=== PATIENT | female | born 1950 | race Caucasian/White ===

== ENCOUNTER → 2018-07-22 08:48 | Outpatient (CLI) | payer MEDICARE, SELFPAY ==
[2018-07-22 12:00] LABS: Thyroid Stimulating Hormone 0.05 uIU/mL (0.47-4.68)
== END ==
PROVIDERS: PCP Physician Assistant; Visit Provider Physician Assistant
DX: E03.9 Hypothyroidism, unspecified (principal)
CPT/HCPCS: 36415; 84439; 84443

== ENCOUNTER → 2018-08-22 09:24 | Outpatient (CLI) | payer MEDICARE, SELFPAY ==
[2018-08-22 11:17] LABS: Free T4, Direct Thyroxine 2.63 ng/dL (0.78-2.19)
[2018-08-22 11:31] LABS: Thyroid Stimulating Hormone 0.06 uIU/mL (0.47-4.68)
== END ==
PROVIDERS: PCP Physician Assistant; Visit Provider Physician Assistant
DX: E03.9 Hypothyroidism, unspecified (principal)
CPT/HCPCS: 36415; 84439; 84443

== ENCOUNTER → 2018-09-15 07:41 | Outpatient (CLI) | payer MEDICARE, SELFPAY ==
--- NOTE | 2018-09-15 | DI.MG.S_ITS ---
BILATERAL DIGITAL SCREENING MAMMOGRAM 3D/2D WITH CAD: 09/15/2018 CLINICAL: Routine screening. Comparison is made to exams dated: 09/07/2017 mammogram, 07/11/2016 mammogram, and 05/25/2015 mammogram - [facility]. There are scattered fibroglandular elements in both breasts. Current study was also evaluated with a Computer Aided Detection (CAD) system. No significant masses, calcifications, or other findings are seen in either breast. There has been no significant interval change. IMPRESSION: NEGATIVE There is no mammographic evidence of malignancy. A 1 year screening mammogram is recommended. This exam was interpreted at Station ID: [id number]. NOTE: For mammograms, a report in lay terms will be sent to the patient. Approximately 15% of breast malignancies will not be visualized mammographically. In the management of a palpable breast mass, a negative mammogram must not discourage biopsy of a clinically suspicious lesion. Electronically Signed By: Gerald velázquez/augusta:09/15/2018 09:11:22 letter sent: Normal Exam ACR BI-RADS Category 1: Negative 3341F
== END ==
PROVIDERS: PCP Physician Assistant; Visit Provider Physician Assistant
DX: Z12.31 Encounter for screening mammogram for malignant neoplasm of breast (principal)
CPT/HCPCS: 77063; 77067

== ENCOUNTER → 2018-10-24 08:32 | Outpatient (CLI) | payer MEDICARE, SELFPAY ==
[2018-10-24 10:03] LABS: Thyroid Stimulating Hormone 0.04 uIU/mL (0.47-4.68)
== END ==
PROVIDERS: PCP Physician Assistant; Visit Provider Internal Medicine Endocrinology, Diabetes & Metabolism
DX: E03.9 Hypothyroidism, unspecified (principal)
CPT/HCPCS: 36415; 84443

== ENCOUNTER → 2019-01-20 18:50 | Outpatient (ROUT) | payer MEDICARE, SELFPAY ==
[2019-01-20 19:05] LABS: Add Manual Diff / Slide Review NO; Basophils Absolute Auto 0 /uL (0-100); Basophils Percent Auto 0.6 % (0-2); Eosinophils Absolute Auto 0 /uL (0-450); Eosinophils Percent Auto 0.9 % (2-4); Hematocrit 38.9 % (36-46); Hemoglobin 13.1 g/dL (12.0-16.0); Lymphocytes Absolute Auto 1400 /uL (1100-4500); Lymphocytes Percent Auto 30.7 % (25-40); Mean Corpuscular HGB Conc 33.7 % (30-36); Mean Corpuscular Hemoglobin 28.6 PG (26-34); Monocytes Absolute Auto 400 /uL (0-900); Neutrophils Absolute Auto 2600 /uL (1500-7000); Neutrophils Percent Auto 59.8 % (50-75); Platelet Count 198 X10^3/uL (150-400); Red Blood Cell Count 4.58 X10^6/uL (4.0-5.2); Red Cell Distribution Width 13.2 % (11.6-14.8); White Blood Cell Count 4.4 X10^3/uL (4.5-11.0)
[2019-01-20 19:14] LABS: Alanine Aminotransferase 21 IU/L (9-52); Albumin 4.5 g/dL (3.5-5.0); Albumin Globulin Ratio 1.6 (1.0-2.8); Alkaline Phosphatase 76 U/L (38-126); Aspartate Aminotransferase 25 IU/L (14-36); BUN Creatinine Ratio 26.7 (6-22); Bilirubin Total 0.6 mg/dL (0.2-1.3); Blood Urea Nitrogen 16 mg/dL (7-17); Calcium 9.7 mg/dL (8.4-10.2); Carbon Dioxide 27 mmol/L (22-32); Chloride 100 mmol/L (98-107); Cholesterol 194 mg/dL (140-199); Estimated Glomerular Filt Rate > 60.0 mL/min (>60); Globulin 2.9 g/dL (1.7-4.1); Glucose 90 mg/dL (80-110); HDL Cholesterol 50 mg/dL (40-60); HEMOLYSIS 16 (0-50); LDL Cholesterol Calculated 117 mg/dL (<100); Potassium 3.8 mmol/L (3.4-5.1); Sodium 139 mmol/L (137-145); Total Protein 7.4 g/dL (6.3-8.2); Triglycerides 134 mg/dL (35-150)
[2019-01-20 19:47] LABS: TSH w/ Reflex to FT4 0.04 uIU/mL (0.47-4.68)
[2019-01-20 20:17] LABS: Free T4, Direct Thyroxine 2.32 ng/dL (0.78-2.19)
== END ==
PROVIDERS: PCP Physician Assistant; Visit Provider Physician Assistant
DX: E03.9 Hypothyroidism, unspecified (principal); E78.2 Mixed hyperlipidemia
CPT/HCPCS: 80053; 80061; 84439; 84443; 85025

== ENCOUNTER → 2019-01-26 10:12 | Outpatient (CLI) | payer MEDICARE, SELFPAY | PROVIDERS: PCP Physician Assistant; Visit Provider Physician Assistant | DX: M85.851 Other specified disorders of bone density and structure, right thigh (principal); Z78.0 Asymptomatic menopausal state; E07.9 Disorder of thyroid, unspecified; Z82.62 Family history of osteoporosis | CPT/HCPCS: 77080 ==

== ENCOUNTER → 2019-03-11 10:10 | Outpatient (CLI) | payer MEDICARE, SELFPAY ==
[2019-03-11 11:56] LABS: Free T4, Direct Thyroxine 1.66 ng/dL (0.78-2.19)
[2019-03-11 12:10] LABS: Thyroid Stimulating Hormone 0.32 uIU/mL (0.47-4.68)
== END ==
PROVIDERS: Family Provider Physician Assistant; PCP Physician Assistant; Visit Provider Internal Medicine Endocrinology, Diabetes & Metabolism
DX: E03.9 Hypothyroidism, unspecified (principal)
CPT/HCPCS: 36415; 84439; 84443

== ENCOUNTER → 2019-11-04 10:00 | Outpatient (CLI) | payer MEDICARE, SELFPAY ==
--- NOTE | 2019-11-04 | DI.MG.S_ITS ---
BILATERAL DIGITAL SCREENING MAMMOGRAM 3D/2D WITH CAD: 11/04/2019 CLINICAL: Routine screening. Comparison is made to exams dated: 09/15/2018 mammogram, 09/07/2017 mammogram, and 07/11/2016 mammogram - [facility]. There are scattered fibroglandular elements in both breasts. Current study was also evaluated with a Computer Aided Detection (CAD) system. There is a 0.7 cm oval equal density focal asymmetry in the left breast at 7 o'clock middle depth. This is more prominent and increased in size. No other significant masses, calcifications, or other findings are seen in either breast. IMPRESSION: INCOMPLETE: NEEDS ADDITIONAL IMAGING EVALUATION The 0.7 cm oval equal density focal asymmetry in the left breast resembles a cyst or a lymph node and is indeterminate. Additional views with possible ultrasound are recommended. This exam was interpreted at Station ID: [id number]. NOTE: For mammograms, a report in lay terms will be sent to the patient. Approximately 15% of breast malignancies will not be visualized mammographically. In the management of a palpable breast mass, a negative mammogram must not discourage biopsy of a clinically suspicious lesion. Electronically Signed By: Gerald velázquez/augusta:11/05/2019 07:17:59 letter sent: Additional Imaging Needed ACR BI-RADS Category 0: Incomplete 3340F
[2019-11-04 10:29] LABS: Add Manual Diff / Slide Review NO; Basophils Absolute Auto 0 /uL (0-100); Basophils Percent Auto 0.5 % (0-2); Eosinophils Absolute Auto 0 /uL (0-450); Eosinophils Percent Auto 0.9 % (2-4); Hematocrit 36.8 % (36-46); Hemoglobin 12.5 g/dL (12.0-16.0); Lymphocytes Absolute Auto 1300 /uL (1100-4500); Lymphocytes Percent Auto 35.5 % (25-40); Mean Corpuscular Hemoglobin 28.8 PG (26-34); Mean Corpuscular Volume 84.7 fL (80-100); Monocytes Absolute Auto 400 /uL (0-900); Neutrophils Absolute Auto 1900 /uL (1500-7000); Neutrophils Percent Auto 53.1 % (50-75); Platelet Count 176 X10^3/uL (150-400); Red Blood Cell Count 4.34 X10^6/uL (4.0-5.2); Red Cell Distribution Width 13.4 % (11.6-14.8); White Blood Cell Count 3.6 X10^3/uL (4.5-11.0)
[2019-11-04 10:45] LABS: Alanine Aminotransferase 14 IU/L (<35); Albumin 4.5 g/dL (3.5-5.0); Albumin Globulin Ratio 1.7 (1.0-2.8); Alkaline Phosphatase 60 U/L (38-126); Aspartate Aminotransferase 22 IU/L (14-36); BUN Creatinine Ratio 27.4 (6-22); Bilirubin Total 0.5 mg/dL (0.2-1.3); Blood Urea Nitrogen 17 mg/dL (7-17); Calcium 9.9 mg/dL (8.4-10.2); Carbon Dioxide 29 mmol/L (22-32); Chloride 102 mmol/L (98-107); Cholesterol 230 mg/dL (140-199); Estimated Glomerular Filt Rate > 60.0 mL/min (>60); Globulin 2.6 g/dL (1.7-4.1); Glucose 102 mg/dL (80-110); HDL Cholesterol 53 mg/dL (40-60); HEMOLYSIS < 15 (0-50); LDL Cholesterol Calculated 158 mg/dL (<100); Potassium 4.1 mmol/L (3.4-5.1); Sodium 137 mmol/L (137-145); Total Protein 7.1 g/dL (6.3-8.2); Triglycerides 95 mg/dL (35-150)
[2019-11-04 11:02] LABS: Vitamin D 25 Hydroxy (D3) 39.6 ng/mL (30.0-100.0)
[2019-11-04 11:15] LABS: TSH w/ Reflex to FT4 3.73 uIU/mL (0.47-4.68)
--- NOTE | 2019-11-04 16:37 | DI.MRI.S_ITS ---
PROCEDURE: MR KNEE LT WO CON INDICATIONS: PAIN LEFT KNEE TECHNIQUE: Noncontrast sagittal PD fast spin echo and T2 fast spin echo with fat saturation, sagittal 3-D FLASH with fat saturation; coronal T1 spin echo and PD fast spin echo with fat saturation, and axial PD fast spin echo with fat saturation through the knee. COMPARISON: None. FINDINGS: Image quality: Excellent. Menisci: Complex tear involving body and posterior horn of medial meniscus is seen extending to both superior and inferior articulating surface. There is no evidence of focal lateral meniscal tear. The meniscal root ligaments appear intact. Cruciate ligaments: Myxoid degenerative changes within the anterior cruciate ligament is seen. No evidence of ACL rupture. PCL is intact. Medial structures: There is low-grade MCL sprain/partial thickness tear. The posterior oblique ligament, semimembranosus tendon insertions, oblique popliteal ligament, and meniscocapsular junction appear intact. Visualized portions of the pes anserinus tendons appear normal. No abnormal bursal fluid. Lateral structures: The lateral collateral ligament, long and short heads of the biceps femoris tendon appear intact. The popliteus tendon appears normal; the popliteofibular ligament appears intact. The posterosuperior and anteroinferior popliteomeniscal fascicles appear intact. The arcuate and fabellofibular ligaments appear intact, on either side of the lateral inferior geniculate artery. Iliotibial band appears normal. Anterior structures: The quadriceps and patellar tendons appear intact. Patellar alignment is normal. No femoral trochlear dysplasia or ventral trochlear prominence. No edema in the infrapatellar fat pad. Bones and cartilage: No bone marrow contusions or fractures. Moderate tricompartmental osteoarthritis and chondromalacia is seen most prominent in the medial femoral tibial compartment. Joint space: There is small to moderate amount of joint effusion, no gross intra-articular loose body.. No Bashir's cyst. Normal appearing synovial plicae are incidentally noted. IMPRESSION: 1. Moderate tricompartmental osteoarthritis and chondromalacia most prominent in the medial femoral tibial compartment. Small to moderate joint effusion. 2. Complex tear involving body and posterior horn of medial meniscus extending to both superior and inferior articular surfaces. Peripheral displacement of medial meniscus bowing medial collateral ligament. No focal lateral meniscal tear. 3. Myxoid degenerative changes within ACL. No ACL rupture. PCL is intact. 4. Low-grade MCL sprain. Dictated by: Valerio Uribe M.D. on 11/05/2019 at 8:49 Approved by: Valerio Uribe M.D. on 11/05/2019 at 8:54
== END ==
PROVIDERS: Family Provider Physician Assistant; PCP Physician Assistant; Referring Provider Physician Assistant; Visit Provider Physician Assistant
DX: Z12.31 Encounter for screening mammogram for malignant neoplasm of breast (principal); M25.562 Pain in left knee; S83.232A Complex tear of medial meniscus, current injury, left knee, initial encounter; S83.412A Sprain of medial collateral ligament of left knee, initial encounter; M17.12 Unilateral primary osteoarthritis, left knee; M94.262 Chondromalacia, left knee; M25.462 Effusion, left knee; I10 Essential (primary) hypertension; E55.9 Vitamin D deficiency, unspecified; E03.9 Hypothyroidism, unspecified; E78.2 Mixed hyperlipidemia
CPT/HCPCS: 36415; 73721; 77063; 77067; 80053; 80061; 82306; 84443; 85025

== ENCOUNTER → 2019-11-23 09:14 | Outpatient (CLI) | payer MEDICARE, SELFPAY ==
--- NOTE | 2019-11-23 | DI.MG.S_ITS ---
UNILATERAL LEFT DIGITAL DIAGNOSTIC MAMMOGRAM 3D/2D WITH ADDITIONAL VIEWS: 11/23/2019 CLINICAL: Additional evaluation requested from prior study. Comparison is made to exams dated: 11/04/2019 mammogram, 09/15/2018 mammogram, 09/07/2017 mammogram, 07/11/2016 mammogram, and 05/25/2015 mammogram - [facility]. There are scattered fibroglandular elements in left breast. There is a 0.7 cm oval equal density focal asymmetry with a circumscribed margin in the left breast at 7 o'clock middle depth. No other significant masses or calcifications are seen in the breast. IMPRESSION: INCOMPLETE: NEEDS ADDITIONAL IMAGING EVALUATION The 0.7 cm oval equal density focal asymmetry in the left breast resembles a cyst or a lymph node and is indeterminate. A targeted ultrasound is recommended and will immediately follow. This exam was interpreted at Station ID: [id number]. NOTE: For mammograms, a report in lay terms will be sent to the patient. Approximately 15% of breast malignancies will not be visualized mammographically. In the management of a palpable breast mass, a negative mammogram must not discourage biopsy of a clinically suspicious lesion. Electronically Signed By: Markos Fallon M.D. slc/:11/23/2019 09:40:14 ACR BI-RADS Category 0: Incomplete 3340F
--- NOTE | 2019-11-23 | DI.US.S_ITS ---
LIMITED ULTRASOUND OF LEFT BREAST: 11/23/2019 CLINICAL: Patient returns today to evaluate a focal asymmetry in the left breast. Comparison is made to exams dated: 11/23/2019 mammogram, 11/04/2019 mammogram, 09/15/2018 mammogram, 09/07/2017 mammogram, 07/11/2016 mammogram, and 05/25/2015 mammogram - [facility]. Color flow and real-time ultrasound of the left breast 7 o'clock region were performed. Nance scale images of the real-time examination were reviewed. There is a benign 0.5 cm x 0.3 cm x 0.3 cm oval cyst in the left breast at 7 o'clock anterior depth 5 cm from the nipple. This oval cyst is anechoic with posterior acoustic enhancement. This correlates with mammography findings. Color flow imaging demonstrates that there is no vascularity present. IMPRESSION: BENIGN There is no sonographic evidence of malignancy. The 0.5 cm oval cyst in the left breast corresponding to the mammographic finding is consistent with a simple cyst and is benign. A 1 year screening mammogram is recommended. Exam findings conveyed to the patient. This exam was interpreted at Station ID: [id number]. Electronically Signed By: Markos Fallon M.D. slc/:11/23/2019 10:56:52 letter sent: Normal Exam Ultrasound BI-RADS: 2 Benign
== END ==
PROVIDERS: Family Provider Physician Assistant; PCP Physician Assistant; Referring Provider Physician Assistant; Visit Provider Physician Assistant
DX: R92.8 Other abnormal and inconclusive findings on diagnostic imaging of breast (principal); N60.02 Solitary cyst of left breast
CPT/HCPCS: 76642; 77065; G0279

== ENCOUNTER → 2020-02-29 18:38 | Outpatient (ROUT) | payer MEDICARE, SELFPAY ==
[2020-02-29 20:20] LABS: BUN Creatinine Ratio 20.3 (6-22); Blood Urea Nitrogen 13 mg/dL (7-17); Calcium 9.4 mg/dL (8.4-10.2); Carbon Dioxide 29 mmol/L (22-32); Chloride 102 mmol/L (98-107); Cholesterol 224 mg/dL (140-199); Estimated Glomerular Filt Rate > 60.0 mL/min (>60); Glucose 99 mg/dL (80-110); HDL Cholesterol 53 mg/dL (40-60); HEMOLYSIS < 15 (0-50); LDL Cholesterol Calculated 141 mg/dL (<100); Potassium 3.9 mmol/L (3.4-5.1); Sodium 138 mmol/L (137-145); Triglycerides 150 mg/dL (35-150)
[2020-02-29 20:42] LABS: TSH w/ Reflex to FT4 3.62 uIU/mL (0.47-4.68)
== END ==
PROVIDERS: Family Provider Physician Assistant; PCP Physician Assistant; Visit Provider Physician Assistant
DX: E78.2 Mixed hyperlipidemia (principal); E03.9 Hypothyroidism, unspecified
CPT/HCPCS: 80048; 80061; 84443

== ENCOUNTER → 2020-07-07 08:05 | Outpatient (CLI) | payer MEDICARE, SELFPAY ==
[2020-07-07] MEDS: COVID-19 VACC, Ad26(JANSSEN)/PF 0.5 ML IM (08:17)
== END ==
PROVIDERS: Family Provider Physician Assistant; PCP Physician Assistant; Visit Provider Internal Medicine
DX: Z23 Encounter for immunization (principal)
CPT/HCPCS: 0031A; 91303

== ENCOUNTER → 2020-08-04 14:45 | Outpatient (ROUT) | payer MEDICARE, SELFPAY ==
[2020-08-04 15:06] LABS: Add Manual Diff / Slide Review NO; Basophils Absolute Auto 0 /uL (0-100); Basophils Percent Auto 0.7 % (0-2); Eosinophils Absolute Auto 0 /uL (0-450); Eosinophils Percent Auto 0.5 % (2-4); Hematocrit 40.1 % (36-46); Hemoglobin 13.6 g/dL (12.0-16.0); Lymphocytes Absolute Auto 1000 /uL (1100-4500); Lymphocytes Percent Auto 18.3 % (25-40); Mean Corpuscular HGB Conc 33.9 % (30-36); Mean Corpuscular Hemoglobin 29.2 PG (26-34); Mean Corpuscular Volume 86.1 fL (80-100); Monocytes Absolute Auto 400 /uL (0-900); Monocytes Percent Auto 7.3 % (3-14); Neutrophils Absolute Auto 3800 /uL (1500-7000); Neutrophils Percent Auto 73.2 % (50-75); Platelet Count 201 X10^3/uL (150-400); Red Blood Cell Count 4.66 X10^6/uL (4.0-5.2); Red Cell Distribution Width 13.4 % (11.6-14.8); White Blood Cell Count 5.2 X10^3/uL (4.5-11.0)
[2020-08-04 15:12] LABS: Alanine Aminotransferase 18 IU/L (<35); Albumin 4.6 g/dL (3.5-5.0); Albumin Globulin Ratio 1.4 (1.0-2.8); Alkaline Phosphatase 76 U/L (38-126); Aspartate Aminotransferase 28 IU/L (14-36); BUN Creatinine Ratio 22.5 (6-22); Bilirubin Total 0.4 mg/dL (0.2-1.3); Blood Urea Nitrogen 16 mg/dL (7-17); Carbon Dioxide 29 mmol/L (22-32); Chloride 100 mmol/L (98-107); Estimated Glomerular Filt Rate > 60.0 mL/min (>60); Globulin 3.3 g/dL (1.7-4.1); Glucose 117 mg/dL (80-110); HEMOLYSIS < 15 (0-50); Magnesium 1.9 mg/dL (1.6-2.3); Sodium 139 mmol/L (137-145); Total Protein 7.9 g/dL (6.3-8.2)
[2020-08-04 15:38] LABS: TSH w/ Reflex to FT4 6.56 uIU/mL (0.47-4.68)
[2020-08-04 17:00] LABS: Free T4, Direct Thyroxine 1.81 ng/dL (0.78-2.19)
== END ==
PROVIDERS: Family Provider Physician Assistant; PCP Physician Assistant; Visit Provider Physician Assistant
DX: R00.2 Palpitations (principal)
CPT/HCPCS: 80053; 83735; 84439; 84443; 85025

== ENCOUNTER → 2020-08-10 15:14 | Outpatient (CLI) | payer MEDICARE, SELFPAY ==
--- NOTE | 2020-08-31 08:41 | PM.CARDMON.1 ---
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 No etiology for patient's sense of palpitations identified on this study. No significant dysrhythmias whatsoever.
== END ==
PROVIDERS: Family Provider Physician Assistant; PCP Physician Assistant; Referring Provider Physician Assistant; Visit Provider Physician Assistant
DX: R00.2 Palpitations (principal)
CPT/HCPCS: 93242; 93244

== ENCOUNTER → 2020-11-10 08:27 | Outpatient (CLI) | payer MEDICARE, SELFPAY ==
--- NOTE | 2020-11-10 | DI.MG.S_ITS ---
BILATERAL DIGITAL SCREENING MAMMOGRAM 3D/2D WITH CAD: 11/10/2020 CLINICAL: Routine screening. Comparison is made to exams dated: 11/23/2019 mammogram, 11/04/2019 mammogram, and 09/15/2018 mammogram - [facility]. There are scattered fibroglandular elements in both breasts. Current study was also evaluated with a Computer Aided Detection (CAD) system. No significant masses, calcifications, or other findings are seen in either breast. There has been no significant interval change. IMPRESSION: NEGATIVE There is no mammographic evidence of malignancy. A 1 year screening mammogram is recommended. This exam was interpreted at Station ID: [id number]. NOTE: For mammograms, a report in lay terms will be sent to the patient. Approximately 15% of breast malignancies will not be visualized mammographically. In the management of a palpable breast mass, a negative mammogram must not discourage biopsy of a clinically suspicious lesion. Electronically Signed By: Flex Bond M.D., jr/augusta:11/10/2020 09:51:02 letter sent: Normal Exam ACR BI-RADS Category 1: Negative 3341F
== END ==
PROVIDERS: Family Provider Physician Assistant; PCP Physician Assistant; Referring Provider Physician Assistant; Visit Provider Physician Assistant
DX: Z12.31 Encounter for screening mammogram for malignant neoplasm of breast (principal)
CPT/HCPCS: 77063; 77067

== ENCOUNTER → 2021-02-15 13:13 | Outpatient (CLI) | payer MEDICARE, SELFPAY | PROVIDERS: Family Provider Physician Assistant; PCP Physician Assistant; Referring Provider Nurse Practitioner; Visit Provider Nurse Practitioner | DX: N34.3 Urethral syndrome, unspecified (principal) | CPT/HCPCS: 87077; 87086 ==

== ENCOUNTER → 2021-11-21 13:07 | Outpatient (CLI) | payer MEDICARE, SELFPAY ==
--- NOTE | 2021-11-21 | DI.MG.S_ITS ---
BILATERAL DIGITAL SCREENING MAMMOGRAM 3D/2D WITH CAD: 11/21/2021 CLINICAL: Routine screening. Comparison is made to exams dated: 11/10/2020 mammogram, 11/04/2019 mammogram, 09/15/2018 mammogram, and 09/07/2017 mammogram - [facility]. There are scattered fibroglandular elements in both breasts. Current study was also evaluated with a Computer Aided Detection (CAD) system. No significant masses, calcifications, or other findings are seen in either breast. There has been no significant interval change. IMPRESSION: NEGATIVE There is no mammographic evidence of malignancy. A 1 year screening mammogram is recommended. Based on the Tyrer Cuzick model (a risk assessment model) the patient's lifetime risk is 6.1% and her 10 year risk is 3.8%. According to the ACR, ACS, and NCCN guidelines, an annual breast MRI exam along with mammogram is recommended if the patient's lifetime risk is 20% or greater. This exam was interpreted at Station ID: [id number]. NOTE: For mammograms, a report in lay terms will be sent to the patient. Approximately 15% of breast malignancies will not be visualized mammographically. In the management of a palpable breast mass, a negative mammogram must not discourage biopsy of a clinically suspicious lesion. Electronically Signed By: Markos couch/augusta:11/21/2021 17:43:34 letter sent: Normal Exam ACR BI-RADS Category 1: Negative 3341F
== END ==
PROVIDERS: Family Provider Physician Assistant; PCP Physician Assistant; Referring Provider Physician Assistant; Visit Provider Physician Assistant
DX: Z12.31 Encounter for screening mammogram for malignant neoplasm of breast (principal)
CPT/HCPCS: 77063; 77067

== ENCOUNTER 2022-03-07 15:29 | Emergency (ER) | payer MEDICARE, SELFPAY ==
[2022-03-07] VITALS (8 sets, daily range): BP systolic 170–193; BP diastolic 73–97; PULSE 77–87; RESP 15–24; TEMP 36.6; O2SAT 98–100
--- NOTE | 2022-03-07 15:36 | DI.RAD.S_ITS ---
PROCEDURE: XR CHEST 1V INDICATIONS: chest pain TECHNIQUE: One view of the chest was acquired. COMPARISON: None. FINDINGS: Surgical changes and devices: None. Lungs and pleura: Lungs are clear. No pleural effusions or pneumothorax. Mediastinum: Mediastinal contours appear normal. Heart size is normal. Bones and chest wall: No suspicious bony lesions. Overlying soft tissues appear unremarkable. IMPRESSION: No acute cardiopulmonary pathology. Dictated by: Valerio Uribe M.D. on 03/07/2022 at 16:16 Approved by: Valerio Uribe M.D. on 03/07/2022 at 16:16
[2022-03-07 16:19] LABS: Add Manual Diff / Slide Review NO; Basophils Absolute Auto 0 /uL (0-100); Basophils Percent Auto 0.3 % (0-2); Eosinophils Absolute Auto 0 /uL (0-450); Eosinophils Percent Auto 0.6 % (2-4); Hematocrit 34.6 % (36-46); Hemoglobin 11.9 g/dL (12.0-16.0); Lymphocytes Absolute Auto 1600 /uL (1100-4500); Mean Corpuscular HGB Conc 34.5 % (30-36); Mean Corpuscular Hemoglobin 29.3 PG (26-34); Mean Corpuscular Volume 84.9 fL (80-100); Monocytes Absolute Auto 500 /uL (0-900); Neutrophils Absolute Auto 4500 /uL (1500-7000); Neutrophils Percent Auto 68.1 % (50-75); Platelet Count 251 X10^3/uL (150-400); Red Blood Cell Count 4.07 X10^6/uL (4.0-5.2); White Blood Cell Count 6.5 X10^3/uL (4.5-11.0)
[2022-03-07 16:35] LABS: Alanine Aminotransferase 16 IU/L (<35); Albumin 4.5 g/dL (3.5-5.0); Albumin Globulin Ratio 1.3 (1.0-2.8); Alkaline Phosphatase 104 U/L (38-126); Aspartate Aminotransferase 25 IU/L (14-36); BUN Creatinine Ratio 22.6 (6-22); Bilirubin Total 0.5 mg/dL (0.2-1.3); Blood Urea Nitrogen 19 mg/dL (7-17); Calcium 9.5 mg/dL (8.4-10.2); Carbon Dioxide 26 mmol/L (22-32); Chloride 100 mmol/L (98-107); Creatine Kinase 23 U/L (30-135); Estimated Glomerular Filt Rate > 60 mL/min (>60); Globulin 3.4 g/dL (1.7-4.1); Glucose 113 mg/dL (80-110); HEMOLYSIS < 15 (0-50); Lipase 15 U/L (23-300); Magnesium 1.8 mg/dL (1.6-2.3); Potassium 3.4 mmol/L (3.4-5.1); Sodium 137 mmol/L (137-145); Total Protein 7.9 g/dL (6.3-8.2)
--- NOTE | 2022-03-07 16:42 | PC.NURSE ---
pt asked to have post op wound checked due to redness and warmth that started a few days ago. undressed. would is covered with steri strips. slight redness at distal end of incision and warmth. pt has post op appt tomorrow to have this checked.
[2022-03-07 16:46] LABS: Troponin I < 0.012 ng/mL (0.01-0.034)
--- NOTE | 2022-03-07 16:47 | ED_ITS ---
HPI - Arrhythmia/Palpitations General Chief Complaint: Arrhythmia/Palpitations Stated Complaint: Heart fluttering Time Seen by Provider: 03/07/22 15:51 Source: patient Mode of arrival: Ambulatory History of Present Illness HPI narrative: 71-year-old female who was instructed to come to the emergency department by her primary provider for elevated blood pressure and also occasional episodes of palpitations. She states that the palpitations never caused her to have chest pain or shortness of breath or lightheadedness. When they come on the last for seconds and then resolve. She did recently have left knee surgery. She currently is asymptomatic. Related Data Home Medications Medication Instructions Recorded Confirmed [vitamin E] ##0 12/12/16 02/15/21 [vitamin b12] ##0 12/12/16 02/15/21 Allergies Allergy/AdvReac Type Severity Reaction Status Date / Time codeine [CODEINE] Allergy Unknown Unverified 02/15/21 13:34 hydrocodone AdvReac Intermediate Vomiting Verified 03/07/22 16:30 Review of Systems Constitutional Constitutional: Reports system reviewed and no additional complaints, except as documented Cardiovascular Cardiovascular: Reports system reviewed and no additional complaints, except as documented Respiratory Respiratory: Reports system reviewed and no additional complaints, except as documented Musculoskeletal Musculoskeletal: Reports system reviewed and no additional complaints, except as documented Integumentary/Breasts Skin/Breast: Reports system reviewed and no additional complaints, except as documented Neurologic Neurologic: Reports system reviewed and no additional complaints, except as documented Patient History Medical History UTI (urinary tract infection) Social History Smoking Status: Never smoker Smoking Status: Never smoker Exam Initial Vital Signs Initial Vital Signs: Vital Signs Temperature 97.9 F 03/07/22 15:32 Pulse Rate 87 03/07/22 15:32 Respiratory Rate 18 03/07/22 15:32 Blood Pressure 173/74 H 03/07/22 15:32 Pulse Oximetry 98 03/07/22 15:32 Oxygen Delivery Method 03/07/22 15:32 Const General: cooperative, healthy appearing, comfortable, well developed and No ill appearing HENMT Head: normal to inspection and normocephalic Resp Effort & Inspection: normal respiratory effort Auscultation: clear to auscultation bilaterally Cardio Rate: regular rate Rhythm: regular rhythm GI Inspection: normal to inspection Skin Other: Well-healing wound to left anterior knee consistent with her stated surgical history. No signs of infection. Extrem General: normal to inspection Course Orders Ordered: ED Orders 03/07/22 15:36 XR chest 1V Stat 03/07/22 15:46 EKG-12 Lead Stat 03/07/22 16:03 Complete Blood Count AUTO DIFF Stat Comprehensive Metabolic Panel Stat Lipase Stat Magnesium Stat Troponin & CK Cardiac Panel Stat Vital Signs Vital signs: Vital Signs - 8 hr 03/07/22 15:32 03/07/22 15:56 03/07/22 15:57 Temperature 97.9 F Pulse Rate 87 77 77 Respiratory Rate 18 23 24 Blood Pressure 173/74 H Pulse Oximetry 98 100 99 Oxygen Delivery Method Room Air 03/07/22 15:57 03/07/22 16:00 03/07/22 16:30 Temperature Pulse Rate 78 79 Respiratory Rate 20 18 Blood Pressure 186/85 H Pulse Oximetry 99 98 Oxygen Delivery Method 03/07/22 16:41 03/07/22 16:41 03/07/22 17:00 Temperature Pulse Rate 82 Respiratory Rate 24 Blood Pressure 193/97 H 170/73 H Pulse Oximetry 99 Oxygen Delivery Method 03/07/22 17:00 03/07/22 17:30 03/07/22 17:30 Temperature Pulse Rate 78 78 Respiratory Rate 17 15 Blood Pressure 177/75 H Pulse Oximetry 98 99 Oxygen Delivery Method MDM - Arrhythmia/Palpitations Lab Data Attestation: I reviewed the patient's lab results. Result diagrams: 03/07/22 16:03 03/07/22 16:03 Labs: Lab Results 03/07/22 03/07/22 Range/Units 16:03 16:03 WBC 6.5 (4.5-11.0) X10^3/uL RBC 4.07 (4.0-5.2) X10^6/uL Hgb 11.9 L (12.0-16.0) g/dL Hct 34.6 L (36-46) % MCV 84.9 (80-100) fL MCH 29.3 (26-34) PG MCHC 34.5 (30-36) % RDW 13.0 (11.6-14.8) % Plt Count 251 (150-400) X10^3/uL Neut % (Auto) 68.1 (50-75) % Lymph % (Auto) 24.0 L (25-40) % Hendricks % (Auto) 7.0 (3-14) % Eos % (Auto) 0.6 L (2-4) % Baso % (Auto) 0.3 (0-2) % Neut # (Auto) 4500 (0064-9839) /uL Lymph # (Auto) 1600 (2973-1614) /uL Hendricks # (Auto) 500 (0-900) /uL Eos # (Auto) 0 (0-450) /uL Baso # (Auto) 0 (0-100) /uL Sodium 137 (137-145) mmol/L Potassium 3.4 (3.4-5.1) mmol/L Chloride 100 (98-107) mmol/L Carbon Dioxide 26 (22-32) mmol/L BUN 19 H (7-17) mg/dL Creatinine 0.84 (0.52-1.04) mg/dL Estimated GFR > 60 (>60) mL/min BUN/Creatinine Ratio 22.6 H (6-22) Glucose 113 H (80-110) mg/dL Calcium 9.5 (8.4-10.2) mg/dL Magnesium 1.8 (1.6-2.3) mg/dL Total Bilirubin 0.5 (0.2-1.3) mg/dL AST 25 (14-36) IU/L ALT 16 (<35) IU/L Alkaline Phosphatase 104 (38-126) U/L Total Creatine Kinase 23 L (30-135) U/L CK-MB (CK-2) TNP CK-MB (CK-2) Rel Index TNP Troponin I < 0.012 (0.01-0.034) ng/mL Total Protein 7.9 (6.3-8.2) g/dL Albumin 4.5 (3.5-5.0) g/dL Globulin 3.4 (1.7-4.1) g/dL Albumin/Globulin Ratio 1.3 (1.0-2.8) Lipase 15 L (23-300) U/L Imaging Data Chest x-ray: Radiologist's Impresson: [address] [id number] XRay Report Signed Patient: Aisha Contreras MR#: [id number] : 1950 Acct:[id number] Age/Sex: 71 / F Date of Service: 03/07/22 Loc: ED Accession Number: [id number] ?? Procedure: XR chest 1V Ordering Provider: Yon Avery D.O. PROCEDURE:? XR CHEST 1V ? INDICATIONS:? chest pain ? TECHNIQUE:? One view of the chest was acquired.? ? COMPARISON:? None. ? FINDINGS:? ? Surgical changes and devices:? None.? ? Lungs and pleura:? Lungs are clear.? No pleural effusions or pneumothorax.? ? Mediastinum:? Mediastinal contours appear normal.? Heart size is normal.? ? Bones and chest wall:? No suspicious bony lesions.? Overlying soft tissues appear unremarkable.? ? IMPRESSION:? No acute cardiopulmonary pathology. ? ? Dictated by: Valerio Uribe M.D. on 03/07/2022 at 16:16 ? ? Approved by: Valerio Uribe M.D. on 03/07/2022 at 16:16? ECG Data Attestation: I personally reviewed and interpreted this ECG as follows: Interpretation: Sinus rhythm Ventricular rate is 74 Normal axis Normal QRS Normal QTC No ST T wave changes MDM Narrative Medical decision making narrative: Patient is asymptomatic. EKG is unremarkable. Labs unremarkable. Her left knee wound looks appropriate and has no signs of infection. Did discuss with her palpitations. Discussed that she should contact her primary doctor for follow-up to discuss the indications for a Holter monitor. She was given return precautions. She expressed understanding agreement. Discharge Plan Departure Patient Disposition: Home Clinical Impression: Palpitations Instructions: Arrhythmias Activity Restrictions/Additional Instructions: Continue to take all of your medications as directed and follow all of the postoperative instructions given to by the orthopedic surgeon. Contact your primary doctor to discuss the indications for a Holter monitor. Return to the emergency department for any new or worsening symptoms. Prescriptions: No Action [vitamin E] Qty: 0 [vitamin b12] Qty: 0 Referrals: Luz Elena Quan PA-C [Primary Care Provider] - Visit Report Forms: Patient Portal/API
== END 2022-03-07 17:55 | disposition home or self-care (01) ==
PROVIDERS: Emergency Provider Emergency Medicine; Family Provider Physician Assistant; PCP Physician Assistant
DX: R00.2 Palpitations (principal); R07.9 Chest pain, unspecified
CPT/HCPCS: 36415; 71045; 80053; 82550; 83690; 83735; 84484; 85025; 93005; 93010; 99284

== ENCOUNTER → 2022-11-26 15:17 | Outpatient (CLI) | payer MEDICARE, SELFPAY ==
--- NOTE | 2022-11-26 15:18 | DI.MG.S_ITS ---
BILATERAL DIGITAL SCREENING MAMMOGRAM 3D/2D WITH CAD: 11/26/2022 CLINICAL: Routine screening. Family history of breast cancer. Comparison is made to exams dated: 11/21/2021 mammogram, 11/10/2020 mammogram, 11/23/2019 mammogram, and 11/04/2019 mammogram - [facility]. There are scattered areas of fibroglandular density in both breasts (category b / 25%-50% glandular tissue). Current study was also evaluated with a Computer Aided Detection (CAD) system. There is a stable benign focal asymmetry in the left breast. No significant masses, calcifications, or other findings are seen in either breast. There has been no significant interval change. IMPRESSION: BENIGN There is no mammographic evidence of malignancy. A 1 year screening mammogram is recommended. Based on the Tyrer Cuzick model (a risk assessment model) the patient's lifetime risk is 5.7% and her 10 year risk is 3.9%. According to the ACR, ACS, and NCCN guidelines, an annual breast MRI exam along with mammogram is recommended if the patient's lifetime risk is 20% or greater. This exam was interpreted at Station ID: [id number]. NOTE: For mammograms, a report in lay terms will be sent to the patient. Approximately 15% of breast malignancies will not be visualized mammographically. In the management of a palpable breast mass, a negative mammogram must not discourage biopsy of a clinically suspicious lesion. Electronically Signed By: Jose nolan/augusta:11/27/2022 08:47:42 letter sent: Normal Exam ACR BI-RADS Category 2: Benign Finding(s) 3342F
== END ==
PROVIDERS: Family Provider Physician Assistant; PCP Physician Assistant; Referring Provider Physician Assistant; Visit Provider Physician Assistant
DX: Z12.31 Encounter for screening mammogram for malignant neoplasm of breast (principal); Z80.3 Family history of malignant neoplasm of breast
CPT/HCPCS: 77063; 77067

== ENCOUNTER → 2023-07-05 | Outpatient (CLI) | payer MEDICARE, SELFPAY ==
--- NOTE | 2023-07-05 15:12 | DI.RAD.S_ITS ---
PROCEDURE: XR DEXA AXIAL SKELETON INDICATIONS: screening for osteoporosis COMPARISON: [facility], CR, XR DEXA AXIAL SKELETON, 01/26/2019, 10:49. FINDINGS: This blank DEXA report has been sent in error by the PACS system. The correct and complete report will be forthcoming in 1-2 days. Thank you for your patience and understanding. Dictated by: Shelton Roberts M.D. on 07/05/2023 at 16:51 Approved by: Shelton Roberts M.D. on 07/05/2023 at 16:51
--- NOTE | 2023-07-05 15:13 | DI.RAD.S_ITS ---
PROCEDURE: XR KNEE LT 3V INDICATIONS: LT KNEE PAIN TECHNIQUE: 3 views of the knee were acquired. COMPARISON: [facility], CR, XR KNEE ARTHRITIC SERIES LT, 02/05/2023, 14:48. [facility], CR, KNEE 3V LEFT, 12/12/2016, 16:08. FINDINGS: Bones: Left knee medial compartment hemiarthroplasty is stable. No periprosthetic lucency to suggest loosening or infection. No fractures or dislocations. No suspicious bony lesions. Soft tissues: Small joint effusion. No suspicious soft tissue calcifications. IMPRESSION: Stable left knee medial compartment hemiarthroplasty. Dictated by: Markos Fallon M.D. on 07/05/2023 at 17:03 Approved by: Markos Fallon M.D. on 07/05/2023 at 17:06
--- NOTE | 2023-07-05 15:44 | DI.DEXA.S_ITS ---
Bone Density Report Name: JAKY GARZA Age: 72 Sex: Female Ethnicity: White Date of : 1950 Indication: osteopenia; Referring Provider: ANAND DAVIS Study: Bone densitometry was performed. Exam Date: July 05, 2023 Accession number: [id number] Bone Density: Region BMD T-score Z-score Classification AP Spine(L1, L2, L3) 1.053 0.3 2.5 Normal Femoral Neck (Left) 0.639 -1.9 0.0 Osteopenia Total Hip (Left) 0.805 -1.1 0.5 Osteopenia Femoral Neck (Right) 0.617 -2.1 -0.2 Osteopenia Total Hip (Right) 0.819 -1.0 0.6 Normal Total Hip Mean 0.812 -1.1 0.6 Osteopenia World Health Organization criteria for BMD impression classify patients as: Normal (T-score at or above -1.0), Osteopenia (T-score between -1.0 and -2.5), or Osteoporosis (T-score at or below -2.5). 10-year Fracture Risk(1): Major Osteoporotic Fracture 12% Hip Fracture 2.6% Reported Risk Factors: [place] (), Neck BMD=0.617, BMI=26.3 (1) FRAX(R) Version 3.08. Fracture probability calculated for an untreated patient. Fracture probability may be lower if the patient has received treatment. Previous Exams: -- Region Exam Age BMD T-score BMD Change BMD Change Date g/cm2 vs Baseline vs Previous -- AP Spine (L1-L3) 07/05/2023 72 1.053 0.3 -0.007 (-0.6%)# -0.007 (-0.6%)# 01/26/2019 68 1.060 0.4 Total Hip(Left) 07/05/2023 72 0.805 -1.1 0.032 (4.1%)# 0.032 (4.1%)# 01/26/2019 68 0.773 -1.4 Total Hip(Right) 07/05/2023 72 0.819 -1.0 0.032 (4.1%)# 0.032 (4.1%)# 01/26/2019 68 0.787 -1.3 -- *Denotes significance at 95% confidence level, LSC for AP Spine = 0.022 g/cm2, LSC for Total Hip = 0.027 g/cm2 # Denotes dissimilar scan types or analysis methods Impression: The patient has low bone mass, based on the Right Femoral Neck T-score. The patient has an estimated ten-year risk of hip fracture of 2.6% and an estimated ten-year risk of major fracture of 12%, based on the WHO FRAX algorithm. No significant bone loss was observed. Discussion: BONE DENSITY IS LOW AT ONE OR MORE SKELETAL SITES. This patient's lowest T-score is low at one or more skeletal sites. It meets the World Health Organization's (WHO) criteria for ?low bone mass? (T-score between -1.0 and -2.5). The patient's 10-year risk of fracture as calculated by FRAX is less than the threshold where pharmacological therapy is recommended by the National Osteoporosis Foundation (NOF). However, all treatment decisions require clinical judgment and consideration of individual patient factors, including patient preferences, comorbidities, previous drug use, risk factors not captured in the FRAX model (e.g., frailty, falls, vitamin D deficiency, increased bone turnover, interval significant decline in bone density) and possible under or overestimation of fracture risk by FRAX. The patient should follow a healthful lifestyle (good nutrition with adequate calcium and vitamin D, and appropriate weight-bearing exercise). Follow-Up: Consider repeating this study in 2 to 3 years to reassess this patient's status, or sooner if there is some new clinical indication. Reported by: WILLY GEORGE MD on 07/05/2023 4:32:00 PM.
== END ==
PROVIDERS: Family Provider Physician Assistant; PCP Nurse Practitioner Family; Referring Provider Nurse Practitioner Family; Visit Provider Nurse Practitioner Family
DX: M85.851 Other specified disorders of bone density and structure, right thigh (principal); Z13.820 Encounter for screening for osteoporosis; N95.9 Unspecified menopausal and perimenopausal disorder; M25.562 Pain in left knee; Z96.652 Presence of left artificial knee joint
CPT/HCPCS: 73562; 77080

== ENCOUNTER 2023-09-18 09:16 | Day surgery (SDC) | payer MEDICARE, SELFPAY ==
--- NOTE | 2023-09-18 | PATH_ITS ---
[facility] Accession Number: [id number] No. of containers..03 Tissue . 01 Material submitted: . PART A: duodenum - DUODENAL PART B: body - R/O H. PYLORI PART C: body - R/O BARRETTS . 01 Clinical history: . A) R/O CECAL B) R/O H.PYLORI C) R/O BARRETTS . 01 Diagnosis: A. DUODENUM, BIOPSY: Duodenal mucosa with no diagnostic abnormality. Negative for active inflammation, features of sprue, dysplasia, or malignancy. . B. STOMACH, BIOPSY: Gastric antral and body mucosa with mild chronic inflammation. Negative for Helicobacter organisms by immunohistochemistry. Negative for intestinal metaplasia. Negative for dysplasia or malignancy. . C. ESOPHAGUS, BIOPSY: Squamocolumnar junctional mucosa with mild reactive features of reflux esophagitis. Negative for specialized intestinal metaplasia or fungal organisms on AB/PAS stain. Negative for dysplasia or malignancy. [facility] 09/25/2023 1628 Local . 01 Electronically signed: . Navneet Izaguirre MD, PhD, Pathologist NPI- [id number] . 01 Gross description: . Part A: DUODENAL: Received in formalin are 2 fragment(s) of landry, soft tissue measuring 0.2 x 0.2 x 0.2 cm to 0.3 x 0.3 x 0.2 cm submitted entirely in 1 cassette(s) Part B: NO SITE: Received in formalin are 2 fragment(s) of landry, soft tissue measuring 0.2 x 0.2 x 0.1 cm to 0.3 x 0.3 x 0.2 cm submitted entirely in 1 cassette(s) Part C: NO SITE DESIGNATED: Received in formalin are 2 fragment(s) of landry, soft tissue measuring 0.1 x 0.1 x 0.1 cm to 0.2 x 0.2 x 0.2 cm submitted entirely in 1 cassette(s) /[facility] 09/20/2023 0046 Local . 01 Microscopic: . B. An immunohistochemical stain was performed to evaluate for Helicobacter organisms and is negative. The control stain showed appropriate reactivity. . C. An AB/PAS stain is negative for goblet cells or fungal organisms. A control stain shows appropriate reactivity. . * This test was developed and its performance characteristics determined by [employer]. It has not been cleared or approved by the U.S. Food and Drug Administration. The FDA has determined that such clearance or approval is not necessary. This test is used for clinical purposes. It should not be regarded as investigational or for research. . 01 Pathologist provided ICD-10: K29.70, K21.9 . 01 CPT . 717187, 496271, 744129, J00176, 344751 Specimen Comment: A courtesy copy of this report has been sent to [phone] Performed at: [address] [id number] MD Silverio Leon MD Phone: [phone]
[2023-09-18 10:31] VITALS: BP 151/82; PULSE 73; RESP 16; TEMP 36.4; O2SAT 99
--- NOTE | 2023-09-18 10:36 | P.HP_ITS ---
History of Present Illness History of Present Illness Date Patient Seen: 09/18/23 Chief complaint: EGD w/poss bx Narrative: History of dyspepsia and H.pylori positive a few years ago rule out recurrent H pylori. In addition gluten sensitivity biopsies to be taken to rule out celiac with patient on a mostly gluten free diet. [facility] Medical History (Updated 09/18/23 @ 10:00 by Haley Queen, MAGALI) Colon polyp, hyperplastic Hypothyroid Hypertension Normal colonoscopy Dyspepsia GERD (gastroesophageal reflux disease) H. pylori infection (~2020) UTI (urinary tract infection) Surgical History (Updated 09/18/23 @ 10:00 by Haley Queen, MAGALI) History of total left knee replacement History of esophagogastroduodenoscopy (EGD) Social History Smoking Status: Never smoker Meds Home Medications and Allergies Home Medications Medication Instructions Recorded Confirmed Type [vitamin E] ##0 12/12/16 02/15/21 History [vitamin b12] ##0 12/12/16 02/15/21 History levothyroxine 100 mcg tablet 100 mcg PO QAM 09/18/23 09/18/23 History losartan 100 mg tablet 100 mg PO DAILY 09/18/23 09/18/23 History omeprazole 20 mg PO DAILY 09/18/23 09/18/23 History oxybutynin chloride 5 mg tablet 5 mg PO ONCE PM 09/18/23 09/18/23 History triamterene 37.5 1 tab PO DAILY 09/18/23 09/18/23 History mg-hydrochlorothiazide 25 mg tablet Allergies Allergy/AdvReac Type Severity Reaction Status Date / Time codeine [CODEINE] Allergy Unknown Nausea Verified 09/18/23 10:30 hydrocodone AdvReac Intermediate Vomiting Verified 09/18/23 10:30 Exam Narrative Exam Narrative: Oropharynx free of lesions Chest clear to auscultation percussion Cardiac exam reveals no S3 or murmur Assessment & Plan Assessment & Plan narrative: Dyspepsia and history of H pylori rule out celiac with duodenal biopsies and recurrent H pylori with gastric biopsies. Risks, benefits, alternatives have been explained.
--- NOTE | 2023-09-18 10:37 | PM.OP.EGD ---
Operative Date/Time/Diagnoses Date of procedure: 09/18/23 Pre-op diagnosis: See indication and findings Procedure & Clinicians Study performed: EGD Indications: History of H pylori rule out recurrence. Gluten sensitivity rule out celiac. Surgeon: Cristi Campbell Procedure Notes Procedure in detail: After informed consent was obtained the patient was placed in left lateral decubitus position. The video upper scope placed into the oropharynx and with the patient's help swelled the esophagus. The esophagus stomach and duodenum were carefully examined. On withdrawal, retroflexed view the GE junction was performed. The scope was removed. The patient tolerated procedure well. Blood loss none Complications none Sedation mac Findings 1. GE junction with indistinct squamocolumnar junction possible underlying Barretts biopsies taken. Approximately 2 cm in length 2. Fairly wide open GE junction 3. Normal stomach biopsies taken in antrum and body to rule out Helicobacter pylori 4. Normal duodenal bulb and sweep biopsies taken to rule out celiac Will be in touch regarding biopsies and she can otherwise follow-up through the office with Louis Bashir
[2023-09-18] MEDS: LACTATED RINGERS 1,000 ML 42 ML IV (10:45)
[2023-09-18 11:08] VITALS: BP 121/78; PULSE 66; RESP 21; TEMP 36.3; O2SAT 97
[2023-09-18 11:13] VITALS: BP 124/66; PULSE 66; RESP 20; O2SAT 98
[2023-09-18 11:19] VITALS: BP 151/97; PULSE 72; RESP 15; TEMP 36.8; O2SAT 97
== END 2023-09-18 11:37 | disposition home or self-care (01) ==
PROVIDERS: Family Provider Physician Assistant; PCP Nurse Practitioner Family; Referring Provider Internal Medicine Gastroenterology; Visit Provider Internal Medicine Gastroenterology
PROC: 0DJ08ZZ Inspection of Upper Intestinal Tract, Via Natural or Artificial Opening Endoscopic (ICD-10-PCS; CPT 43239; principal; 2023-09-18 10:30)
DX: R10.13 Epigastric pain (principal); Z87.19 Personal history of other diseases of the digestive system; K29.50 Unspecified chronic gastritis without bleeding
CPT/HCPCS: 43239; J2405; J2704

== ENCOUNTER → 2023-12-02 09:07 | Outpatient (CLI) | payer MEDICARE, SELFPAY ==
[2023-12-02 10:53] LABS: Hemoglobin A1C% w Est Avg Glu 6.1 % (4.0-6.0)
[2023-12-02 11:34] LABS: TSH w/ Reflex to FT4 3.16 uIU/mL (0.47-4.68)
== END ==
PROVIDERS: Family Provider Nurse Practitioner Family; PCP Nurse Practitioner Family; Referring Provider Nurse Practitioner Family; Visit Provider Nurse Practitioner Family
DX: E11.9 Type 2 diabetes mellitus without complications (principal); E03.9 Hypothyroidism, unspecified
CPT/HCPCS: 36415; 83036; 84443

== ENCOUNTER → 2023-12-05 10:57 | Outpatient (CLI) | payer MEDICARE, SELFPAY ==
--- NOTE | 2023-12-05 10:59 | EKG_ITS ---
[address] [address] [address] [address] Test Date: 2023-12-05 Pat Name: Aisha Cameron Department: Room: Gender: Female Email Engineer: NESTOR : 1950 Requested By: Order Number: [id number] Reading MD: Shady Bautista MD Measurements Intervals [place] Rate: 70 P: 71 NC: 194 QRS: 55 QRSD: 84 T: 57 QT: 384 QTc: 414 Interpretive Statements Normal sinus rhythm Possible Left atrial enlargement Electronically Signed On 12-05-2023 12:19:19 PDT by Shady Bautista MD
== END ==
PROVIDERS: Family Provider Nurse Practitioner Family; PCP Nurse Practitioner Family; Referring Provider Nurse Practitioner Family; Visit Provider Nurse Practitioner Family
DX: R07.9 Chest pain, unspecified (principal)
CPT/HCPCS: 93005; 93010

== ENCOUNTER → 2023-12-26 | Outpatient (CLI) | payer MEDICARE, SELFPAY ==
--- NOTE | 2023-12-31 19:57 | DI.NM.S_ITS ---
DATE OF SERVICE: 12/31/2023 PROCEDURE: Exercise perfusion study. INDICATIONS: Chest pressure, hypertension. RADIOPHARMACEUTICAL: 25.1 millicurie technetium-99m Myoview IV was injected at stress and 27.0 millicurie technetium-99m Myoview IV was injected at rest. CARDIAC STRESS: The patient underwent exercise perfusion study under the supervision of an attending staff using standard Tian protocol. The patient walked on Tian protocol for 4 minutes and 11 seconds, achieved maximum heart rate of 144, which was 97% of target heart rate. Hypertensive blood pressure response. Resting blood pressure 140/100 and peak blood pressure 200/112 mmHg. 7 METs of workload. BOLA positive 21%. Baseline rhythm was sinus with nonspecific ST-T changes. During stress, no convincing ischemic changes seen. No significant arrhythmias. No chest pain. The patient had shortness of breath. RAW DATA: There was breast shadow seen. GATED STUDY: Resting LV ejection fraction 74 and stress LV ejection fraction 75% without any obvious wall motion abnormalities. Resting end- diastolic volume 82 mL. TID ratio 0.98, which is within normal limits. Lung/heart ratio 0.45, which is within normal limits. MYOCARDIAL PERFUSION SCAN: Stress supine, resting supine and stress prone images were compared to each other. Stress and resting supine images revealed small size, mildly decreased perfusion of mid to distal anterior wall and distal anterior septum, which got significantly improved during stress prone images suggestive of breast tissue attenuation artifact. No convincing ischemia or infarction pattern seen. CONCLUSION: I will call this study likely a normal myocardial perfusion study with evidence of breast tissue attenuation artifact, which got improved during stress prone images. Diminished exercise tolerance. Hypertensive blood pressure response. No obvious ischemic EKG changes. No significant arrhythmias. No anginal discomfort; however, the patient had shortness of breath. As far as perfusion scan is concerned, this is a low-risk myocardial perfusion scan. Correlate clinically. Aisha Contreras - YAJAIRA/divina/CHAUNCEY doc#: [id number]/job#: [id number] dd: 12/31/2023 16:45:00 dt: 12/31/2023 19:15:00 DICTATING MD/COPIES TO: Kayleigh Tavarez MD COPIES MNE: [email or web address];
== END ==
LOC: NUCM 14:22
PROVIDERS: Family Provider Nurse Practitioner Family; PCP Nurse Practitioner Family; Referring Provider Internal Medicine Cardiovascular Disease; Visit Provider Internal Medicine Cardiovascular Disease
DX: R07.89 Other chest pain (principal); I10 Essential (primary) hypertension
CPT/HCPCS: 78452; 93017; A9502

== ENCOUNTER 2024-01-10 09:45 | Outpatient (RCR) | payer MEDICARE, SELFPAY ==
--- NOTE | 2023-11-07 16:59 | PT.OIE ---
Current Diagnoses Pain in right knee (11/07/23) Pain in left knee (11/07/23) Muscle weakness (generalized) (11/07/23) Other abnormalities of gait and mobility (11/07/23) Past Medical History (Last Updated 09/18/23 @ 10:00 by Haley Queen, MAGALI) Colon polyp, hyperplastic Dyspepsia GERD (gastroesophageal reflux disease) H. pylori infection (~2020) Hypertension Hypothyroid Normal colonoscopy UTI (urinary tract infection) Past Surgical History (Last Updated 09/18/23 @ 10:00 by Haley Queen, MAGALI) History of esophagogastroduodenoscopy (EGD) History of total left knee replacement Visit Care Team Role Provider Type BOBBY Crain, MAGALI Attending Provider [employer] Architect Family Provider Primary Care Provider Referring Provider Specialty: Emergency Medicine Address: [address] [place] [address], [facility] Email: [email or web address] Physical Therapy Initial Evaluation PT-OP-A Visit Information Start: 10/25/23 19:44 Freq: Status: Active Protocol: Document 11/07/23 18:59 LRN (Rec: 11/07/23 20:35 LRN [id number]) Out-Patient Physical Therapy Visit Information Visit Information Visit Type Initial Evaluation Visit Start Time 09:05 Visit Stop Time 09:45 Visit Number 1 Evaluation Information Evaluation Date 11/07/23 Precautions Precautions Back pain, Osteopenia, HBP semi-controlled w/meds, thyroid disorder. PT-OP-B Current Condition Start: 10/25/23 19:44 Freq: Status: Active Protocol: Document 11/07/23 18:59 LRN (Rec: 11/07/23 20:35 LRN [id number]) Current Condition History of Current Condition Onset Date 01/2022 Current Complaints Intermittent L knee super & infer to lat jt line pn & ant to tib/fib & jt History of Current Condition Pt is s/p L partial knee arthroplasty, 01/[address] Guerra in [facility]. Pt states she had 7 months of PT at [facility] Physical Therapy with good results until the last day of therapy, when she pushed a cart weighing 100#, and ended up twisting at the knee causing onset of knee pain. She reports having 7 ART treatments that she reports helped her get over the initial sharp pains. She reports her pain is now intermittent, noticeably when she twists at the knee resulting in a click deep in the knee and temporary instantaneous pain. She states she does her previous [facility] ex's sometimes, but mainly ex's at a gym 1x/week on an ex bike 45 minutes (3 miles). She reports difficulty standing after sitting in a car, requiring use of her hands to get up out of the car and must stand for ~10 secs before she is able to move and walk. Pt states she was referred to PT. Prior Treatments and Tests [facility] physical therapy for 7 months s/p L partial knee arthroplasty Treatment Goals Patient/Caregiver Goals Pt goal: - be able to sit 2 hrs in a car, then be able to get up out of the car w/o use of her hands - be able to walk after getting out of car after prolonged sitting (2 hrs) w/o having to stand 10 secs before moving. - pt agreeable to being placed on a HEP. Personal Factors Other Personal Factors That May Effect HBP not completely controlled Therapy/Recovery by meds (last taken-), Osteopenia, Hypothyroid (controlled by meds). PT-OP-C Subjective Start: 10/25/23 19:44 Freq: Status: Active Protocol: Document 11/07/23 18:59 LRN (Rec: 11/07/23 20:35 LRN [id number]) Patient Questionnaires Lower Extremity Functional Scale LEFS Score 39 LEFS Impairment 40 to 59% Impaired (Score 32- 47) OP-PT Pain Assessment Pain Assessment Grid Paper Pain Assessment Grid Completed Yes Location R hip Pain Location Details Posterolateral hip Intensity 5 Scale Used Numeric (0 - 10) R knee Pain Location Details Lateral knee Intensity 4 Scale Used Numeric (0 - 10) Description Aching Frequency Intermittent Pain Aggravating Factors Sitting,Walking Other Pain Aggravating Factors Prolonged walk-limping off L LE L knee Pain Location Details Lateral knee super & inferior to joint line & Tib/Fib joint Intensity 5 Scale Used Numeric (0 - 10) Description Aching,Sharp Description- Other Deep in joint pain, bone on bone quick pain. Frequency Intermittent Pain Aggravating Factors Sitting Other Pain Aggravating Factors Twisting at the knee, prolonged sitting PT-OP-G Mobility & Gait Start: 10/25/23 19:44 Freq: Status: Active Protocol: Document 11/07/23 18:59 LRN (Rec: 11/07/23 20:35 LRN [id number]) OP Gait Assessment Gait Gait Assistance Required: Independent Gait Deviations General Gait Pattern Decreased Stride Length, Decreased Feet Clearance, Lateral Trunk Lean Factors Limiting Gait Function Factors Limiting Gait Function Limited Range of Motion,Pain PT-OP-J Posture/Palpation/Skin Start: 10/25/23 19:44 Freq: Status: Active Protocol: Document 11/07/23 18:59 LRN (Rec: 11/07/23 20:35 LRN [id number]) Posture Evaluation Position Standing Head/C-Spine Posture Forward Head L-Spine Posture Flattened Weight Distribution Weight Shifted Right,Decreased Wt.Bear on (L) Hip Posture (L) Externally Rotated Knee Posture (R) Genu Varus Ankle/Foot Posture (R) Pronated,(L) Supinated Palpation Assessment Location L knee Palpation Location Joint line and inferiorly Palpation Findings Edema,Tenderness Palpation Details Tender at Tib/Fib joint with PA/AP mob, and anterior to Tib /Fib joint, tibialis anterior, fib longus (PF), peroneus longus (EV). PT-OP-K Range of Motion Start: 10/25/23 19:44 Freq: Status: Active Protocol: Document 11/07/23 18:59 LRN (Rec: 11/07/23 20:35 LRN [id number]) Knee Goniometric Range of Motion Knee Right Patient Position Supine Flexion Active (degrees) 122 Extension Active (degrees) 7 Comments Sitting AROM: 0-113 Left Patient Position Supine Flexion Active (degrees) 105 Extension Active (degrees) 7 Comments Sitting AROM: 10-105 PT-OP-M Strength Start: 10/25/23 19:44 Freq: Status: Active Protocol: Document 11/07/23 18:59 LRN (Rec: 11/07/23 20:35 LRN [id number]) Hip Strength Hip Manual Muscle Testing Right Flexion (L2) 4 Good Extension (S1) 3 Fair Comments Hip strength is normal except as indicated above. Left Flexion (L2) 4 Good Extension (S1) 3 Fair Comments Hip strength is normal except as indicated above. Knee Strength Knee Manual Muscle Testing Right Flexion (S2) 5 Normal Extension (L3) 5 Normal Left Flexion (S2) 4 Good Extension (L3) 4 Good Ankle/Foot Strength Ankle and Foot Manual Muscle Testing Right Comments Strength is 5/5 in all muscle groups. Left Dorsiflexion (L4) 4 Good Plantarflexion (S1) 5 Normal Inversion 4 Good Eversion (S1) 4 Good Comments Limited by pain at knee. PT-OP-Q Treatments Start: 10/25/23 19:44 Freq: Status: Active Protocol: Document 11/07/23 18:59 LRN (Rec: 11/07/23 20:35 LRN [id number]) Therapeutic Exercises Prone Exercises Knee flex Prone Exercise Name AROM Side left Reps/Minutes 2x Comments Extra time needed due to onset of gluteal/hamstring ms cramps. Hip Ext Prone Exercise Name ARM Side left Reps/Minutes 10x Comments Extra time needed due to onset of gluteal/hamstring ms cramps. Sitting Exercises Knee flex Sitting Exercise Name I/S pt to resume knee flex/ext AROM if tolerated. Side left Self-Care/Home Management Treatment Education Other Education Discussed results of evaluation, goals, treatment, and plan of care (POC) with pt , attendance/cx/dns policy; pt agreeable to evaluation, goals, treatment, attendance/ cx/dns policy and POC. Activities Self-Care/Home Management Activities I/S pt in HEP of Prone: hip ext & when can do with straight motion-knee flex; sitting knee flex/ext. PT-OP-T Assessment and Plan Start: 10/25/23 19:44 Freq: Status: Active Protocol: Document 11/07/23 18:59 LRN (Rec: 11/07/23 20:35 LRN [id number]) Physical Therapy Assessment Rehab Potential Rehabilitation Potential Fair Evaluation Complexity Number of Personal Factors/Comorbidities 3 or More Number of Body Systems Impaired 4 or More Clinical Presentation at Evaluation Evolving Impairments Impairments Activity Tolerance,Edema,Gait, Pain,Posture,ROM,Soft Tissue Mobility,Strength,Transfers Goals Three Impairment Decreased L knee & gary ankle mobility (L EV, R IV) Short Term Goal (STG) Pt will be able to manage the edema in her L knee with use of cryotherapy and contrast heat/ice and RICE protocol for pain management. STG Duration 6 wks-12/20/23 Documentation Analyst Goal (LTG) Improve L knee and gary ankle mobility with pt be able to walk after getting out of car after prolonged sitting (2 hrs ) w/o having to stand 10 secs before moving. LTG Duration 12 wks-01/31/24 Two Impairment Decreased hip/knee/ankle strength limiting sit<>stand Short Term Goal (STG) Pt will be educated in supportive posturing in a car to reduce pain and edema with travel. STG Duration 6 wks-12/20/23 Documentation Analyst Goal (LTG) Improve gary hip/L knee & ankle strength with pt able to sit 2 hrs in a car, then be able to get up out of the car w/o use of her hands. LTG Duration 12 wks-01/31/24 One Impairment Pt lacks and is not independent w/self care HEP. Documentation Analyst Goal (LTG) Pt will be independent in an effective self care HEP for core/hip/knee/ankle (L>R) strengthening and mobility ex' s (L knee/ankle/?hip). LTG Duration 12 wks-01/31/24 Assessment Summary Assessment Pt is a 72 yo female ~9 months s/p L partial knee arthroplasty, who presents with L knee weakness and decreased mobility resulting in onset of R knee/hip pain, antalgic gait, edema and pain at L knee and decreased function with sitting and walking, after injury on the last day of her rehab for her partial knee arthroplasty. Today the pt has symptom description of possible L knee arthroplasty component instability; therefore if pain persists after core/hip/knee/ ankle strengthening and gait/ balance training rehab, further assessment may be needed. The pt's rehab time needs to be extended due to pt summer activities and summer scheduling difficulties. The pt will benefit from skilled physical therapy of mobility & ROM ex's, gait/balance training, functional and transfer training, pt education in edema/pain management and self care ex's to achieve the above stated goals. Physical Therapy Plan Frequency and Duration Frequency of Treatment 2x/Week Duration of treatment (weeks) 12 Plan of Care Start Date 11/07/23 Plan of Care End Date 01/31/24 Therapeutic Interventions Therapeutic Interventions Home Exercise Program,Manual Therapy,Neuromuscular Re- education,Self-Care/Home Management,Soft Tissue Mobilization,Taping, Therapeutic Activities, Therapeutic Exercises Modalities Cold Pack/Ice Massage,Hot Packs Other Therapeutic Interventions Tib/fib joint mobiliation. Next Visit Focus/Plan Next Note Type Treatment Note Next Visit Plan Next: Assess R hip pain, stair amb, balance, TUG, & sensation, L knee & gary ankle AROM, hip/ankle strengthening. JMT L tib/fib. Manual: STM inferior lower leg & mob of Tib/fib jt ROM: Ankle EV left, IV right; hip ext, gary knee ext, L knee flex. Strengthening: gary hip ext/ flex, L knee/ankle. Gait/balance training Education: RICE, edema mgmt w /hot-cold, HEP. POC: Therapeutic Ex ( strengthening/ROM), Therapeutic Activity (transfer training), manual therapy ( STM/JMT), Gait & Balance training, Pt Education (HEP, Edema and pain mgmt).
--- NOTE | 2023-11-07 17:02 | PT.OPPOC ---
Physical, Occupational & Speech Therapy At [facility] Current Diagnoses Pain in right knee (11/07/23) Pain in left knee (11/07/23) Muscle weakness (generalized) (11/07/23) Other abnormalities of gait and mobility (11/07/23) Visit Care Team Role Provider Type BOBBY Crain, RN Attending Provider Advanced Qa Analyst Family Provider Primary Care Provider Referring Provider Specialty: Emergency Medicine Address: [address] [place] [address], [id number] Email: [email or web address] Plan Of Care PT-OP-T Assessment and Plan Start: 10/25/23 19:44 Freq: Status: Active Protocol: Document 11/07/23 18:59 LRN (Rec: 11/07/23 20:35 LRN [id number]) Physical Therapy Assessment Rehab Potential Rehabilitation Potential Fair Evaluation Complexity Number of Personal Factors/Comorbidities 3 or More Number of Body Systems Impaired 4 or More Clinical Presentation at Evaluation Evolving Impairments Impairments Activity Tolerance,Edema,Gait, Pain,Posture,ROM,Soft Tissue Mobility,Strength,Transfers Goals Three Impairment Decreased L knee & gary ankle mobility (L EV, R IV) Short Term Goal (STG) Pt will be able to manage the edema in her L knee with use of cryotherapy and contrast heat/ice and RICE protocol for pain management. STG Duration 6 wks-12/20/23 Chain Pegger Goal (LTG) Improve L knee and gary ankle mobility with pt be able to walk after getting out of car after prolonged sitting (2 hrs ) w/o having to stand 10 secs before moving. LTG Duration 12 wks-01/31/24 Two Impairment Decreased hip/knee/ankle strength limiting sit<>stand Short Term Goal (STG) Pt will be educated in supportive posturing in a car to reduce pain and edema with travel. STG Duration 6 wks-12/20/23 Chain Pegger Goal (LTG) Improve gary hip/L knee & ankle strength with pt able to sit 2 hrs in a car, then be able to get up out of the car w/o use of her hands. LTG Duration 12 wks-01/31/24 One Impairment Pt lacks and is not independent w/self care HEP. Group Home Goal (LTG) Pt will be independent in an effective self care HEP for core/hip/knee/ankle (L>R) strengthening and mobility ex' s (L knee/ankle/?hip). LTG Duration 12 wks-01/31/24 Assessment Summary Assessment Pt is a 72 yo female ~9 months s/p L partial knee arthroplasty, who presents with L knee weakness and decreased mobility resulting in onset of R knee/hip pain, antalgic gait, edema and pain at L knee and decreased function with sitting and walking, after injury on the last day of her rehab for her partial knee arthroplasty. Today the pt has symptom description of possible L knee arthroplasty component instability; therefore if pain persists after core/hip/knee/ ankle strengthening and gait/ balance training rehab, further assessment may be needed. The pt's rehab time needs to be extended due to pt summer activities and summer scheduling difficulties. The pt will benefit from skilled physical therapy of mobility & ROM ex's, gait/balance training, functional and transfer training, pt education in edema/pain management and self care ex's to achieve the above stated goals. Physical Therapy Plan Frequency and Duration Frequency of Treatment 2x/Week Duration of treatment (weeks) 12 Plan of Care Start Date 11/07/23 Plan of Care End Date 01/31/24 Therapeutic Interventions Therapeutic Interventions Home Exercise Program,Manual Therapy,Neuromuscular Re- education,Self-Care/Home Management,Soft Tissue Mobilization,Taping, Therapeutic Activities, Therapeutic Exercises Modalities Cold Pack/Ice Massage,Hot Packs Other Therapeutic Interventions Tib/fib joint mobiliation. Next Visit Focus/Plan Next Note Type Treatment Note Next Visit Plan Next: Assess R hip pain, stair amb, balance, TUG, & sensation, L knee & gary ankle AROM, hip/ankle strengthening. JMT L tib/fib. Manual: STM inferior lower leg & mob of Tib/fib jt ROM: Ankle EV left, IV right; hip ext, gary knee ext, L knee flex. Strengthening: gary hip ext/ flex, L knee/ankle. Gait/balance training Education: RICE, edema mgmt w /hot-cold, HEP. POC: Therapeutic Ex ( strengthening/ROM), Therapeutic Activity (transfer training), manual therapy ( STM/JMT), Gait & Balance training, Pt Education (HEP, Edema and pain mgmt). Plan of Care Dates Plan of Care Start Date 11/07/23 Plan of Care End Date 01/31/24 Electronically Signed by: Madeline Cabrera, PT 11/08/23 2303 If you are in agreement with this Plan of Care, please return a signed and dated copy. I have reviewed this Plan of Care and certify that the skilled therapy services above are required to meet the patient?s needs. Physician Signature Date Printed Name and Credentials Clinical Instructor Signature Printed Name and Credentials
--- NOTE | 2023-11-12 16:22 | PT-OP ANOTE ---
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 Pt to call back and speak to director regarding DNS appointment and cancel of 2 of initally scheduled appointments. Pt plans on starting therapy in November.
--- NOTE | 2023-12-04 09:45 | PT.OTN ---
Current Diagnoses Pain in right knee (12/04/23) Pain in left knee (12/04/23) Muscle weakness (generalized) (12/04/23) Other abnormalities of gait and mobility (12/04/23) Physical Therapy Treatment Note PT-OP-A Visit Information Start: 10/25/23 19:44 Freq: Status: Active Protocol: Document 12/04/23 09:05 SP (Rec: 12/04/23 09:49 SP [id number]) Out-Patient Physical Therapy Visit Information Visit Information Visit Type Treatment Note Visit Start Time 09:05 Visit Stop Time 09:45 Visit Number 2 Number of PATENT ENGINEER Visits 1 Evaluation Information Evaluation Date 11/07/23 Precautions Precautions Back pain, Osteopenia, HBP semi-controlled w/meds, thyroid disorder. 07/20: L knee xray: Small joint effusion. No suspicious soft tissue calcifications. Stable left knee medial compartment hemiarthroplasty. PT-OP-B Current Condition Start: 10/25/23 19:44 Freq: Status: Active Protocol: Document 11/07/23 18:59 LRN (Rec: 11/07/23 20:35 LRN [id number]) Current Condition History of Current Condition Onset Date 01/2022 Current Complaints Intermittent L knee super & infer to lat jt line pn & ant to tib/fib & jt History of Current Condition Pt is s/p L partial knee arthroplasty, 01/[address] Guerra in [facility]. Pt states she had 7 months of PT at [facility] Physical Therapy with good results until the last day of therapy, when she pushed a cart weighing 100#, and ended up twisting at the knee causing onset of knee pain. She reports having 7 ART treatments that she reports helped her get over the initial sharp pains. She reports her pain is now intermittent, noticeably when she twists at the knee resulting in a click deep in the knee and temporary instantaneous pain. She states she does her previous G ex's sometimes, but mainly ex's at a gym 1x/week on an ex bike 45 minutes (3 miles). She reports difficulty standing after sitting in a car, requiring use of her hands to get up out of the car and must stand for ~10 secs before she is able to move and walk. Pt states she was referred to PT. Prior Treatments and Tests [facility] physical therapy for 7 months s/p L partial knee arthroplasty Treatment Goals Patient/Caregiver Goals Pt goal: - be able to sit 2 hrs in a car, then be able to get up out of the car w/o use of her hands - be able to walk after getting out of car after prolonged sitting (2 hrs) w/o having to stand 10 secs before moving. - pt agreeable to being placed on a HEP. Personal Factors Other Personal Factors That May Effect HBP not completely controlled Therapy/Recovery by meds (last taken-131/84), Osteopenia, Hypothyroid (controlled by meds). PT-OP-C Subjective Start: 10/25/23 19:44 Freq: Status: Active Protocol: Document 12/04/23 09:05 SP (Rec: 12/04/23 09:49 SP [id number]) OP-PT Subjective Patient Comments Patient Comments Pt had alot family in town past 3 weeks so unable start PT tx until today. She reports her L knee not as achy as had been, with less achiness moving around more fluidly. She is stiff after sitting >20 min coming PT-OP-G Mobility & Gait Start: 10/25/23 19:44 Freq: Status: Active Protocol: Document 11/07/23 18:59 LRN (Rec: 11/07/23 20:35 LRN [id number]) OP Gait Assessment Gait Gait Assistance Required: Independent Gait Deviations General Gait Pattern Decreased Stride Length, Decreased Feet Clearance, Lateral Trunk Lean Factors Limiting Gait Function Factors Limiting Gait Function Limited Range of Motion,Pain PT-OP-J Posture/Palpation/Skin Start: 10/25/23 19:44 Freq: Status: Active Protocol: Document 11/07/23 18:59 LRN (Rec: 11/07/23 20:35 LRN [id number]) Posture Evaluation Position Standing Head/C-Spine Posture Forward Head L-Spine Posture Flattened Weight Distribution Weight Shifted Right,Decreased Wt.Bear on (L) Hip Posture (L) Externally Rotated Knee Posture (R) Genu Varus Ankle/Foot Posture (R) Pronated,(L) Supinated Palpation Assessment Location L knee Palpation Location Joint line and inferiorly Palpation Findings Edema,Tenderness Palpation Details Tender at Tib/Fib joint with PA/AP mob, and anterior to Tib /Fib joint, tibialis anterior, fib longus (PF), peroneus longus (EV). PT-OP-K Range of Motion Start: 10/25/23 19:44 Freq: Status: Active Protocol: Document 11/07/23 18:59 LRN (Rec: 11/07/23 20:35 LRN [id number]) Knee Goniometric Range of Motion Knee Right Patient Position Supine Flexion Active (degrees) 122 Extension Active (degrees) 7 Comments Sitting AROM: 0-113 Left Patient Position Supine Flexion Active (degrees) 105 Extension Active (degrees) 7 Comments Sitting AROM: 10-105 PT-OP-M Strength Start: 10/25/23 19:44 Freq: Status: Active Protocol: Document 11/07/23 18:59 LRN (Rec: 11/07/23 20:35 LRN [id number]) Hip Strength Hip Manual Muscle Testing Right Flexion (L2) 4 Good Extension (S1) 3 Fair Comments Hip strength is normal except as indicated above. Left Flexion (L2) 4 Good Extension (S1) 3 Fair Comments Hip strength is normal except as indicated above. Knee Strength Knee Manual Muscle Testing Right Flexion (S2) 5 Normal Extension (L3) 5 Normal Left Flexion (S2) 4 Good Extension (L3) 4 Good Ankle/Foot Strength Ankle and Foot Manual Muscle Testing Right Comments Strength is 5/5 in all muscle groups. Left Dorsiflexion (L4) 4 Good Plantarflexion (S1) 5 Normal Inversion 4 Good Eversion (S1) 4 Good Comments Limited by pain at knee. PT-OP-Q Treatments Start: 10/25/23 19:44 Freq: Status: Active Protocol: Document 12/04/23 09:05 SP (Rec: 12/04/23 09:49 SP [id number]) Therapeutic Exercises Prone Exercises Knee flex Prone Exercise Name added to HEP Side left Resistance AROM Reps/Minutes 5 reps, 5 sec hold Hip Ext Side left Resistance AROM Reps/Minutes 5 x2 reps Comments cued TA draw in, TKE- improved form with reps Sitting Exercises self STMs Sitting Exercise Name vashti pin: quad, HS, calf, ITB, adductor Side left Reps/Minutes 1 min total Comments reported less tension in quad Knee flex Sitting Exercise Name added to HEP Side left Reps/Minutes 10 reps, 5 SH x10 Comments painfree Self-Care/Home Management Treatment Education Patient Education Body Mechanics,Home Exercise Program,Pain Management Other Education 15 min ed L knee anatomy mechanics, HEP added: prone L knee flexion AROM and holds for quad and HS. PT-OP-T Assessment and Plan Start: 10/25/23 19:44 Freq: Status: Active Protocol: Document 12/04/23 09:05 SP (Rec: 12/04/23 09:49 SP [id number]) Physical Therapy Assessment Goals Three Impairment Decreased L knee & gary ankle mobility (L EV, R IV) Short Term Goal (STG) Pt will be able to manage the edema in her L knee with use of cryotherapy and contrast heat/ice and RICE protocol for pain management. STG Duration 6 wks-12/20/23 Shelter Goal (LTG) Improve L knee and gary ankle mobility with pt be able to walk after getting out of car after prolonged sitting (2 hrs ) w/o having to stand 10 secs before moving. LTG Duration 12 wks-01/31/24 Two Impairment Decreased hip/knee/ankle strength limiting sit<>stand Short Term Goal (STG) Pt will be educated in supportive posturing in a car to reduce pain and edema with travel. STG Duration 6 wks-12/20/23 Detail Drafter Goal (LTG) Improve gary hip/L knee & ankle strength with pt able to sit 2 hrs in a car, then be able to get up out of the car w/o use of her hands. LTG Duration 12 wks-01/31/24 One Impairment Pt lacks and is not independent w/self care HEP. Detail Drafter Goal (LTG) Pt will be independent in an effective self care HEP for core/hip/knee/ankle (L>R) strengthening and mobility ex' s (L knee/ankle/?hip). 12/04/23: prone hip ext, knee flexion, LAQ, STS, rolling pin LE. LTG Duration 12 wks-01/31/24 progressing 12/04/23 Assessment Summary Assessment Pt demonstrated decreased antalgic gait at arrival. She responded well to ther ex and better understanding of mechanics in knee and tx focused on AROM warm up while sitting to allow decreased stiffness and jt stability and mobility upon standing. Pt reported felt like L knee moving more end tx and pleased with activity today to carryover home. Provided HOs. Physical Therapy Plan Frequency and Duration Frequency of Treatment 2x/Week Duration of treatment (weeks) 12 Plan of Care Start Date 11/07/23 Plan of Care End Date 01/31/24 Therapeutic Interventions Therapeutic Interventions Home Exercise Program,Manual Therapy,Neuromuscular Re- education,Self-Care/Home Management,Soft Tissue Mobilization,Taping, Therapeutic Activities, Therapeutic Exercises Modalities Cold Pack/Ice Massage,Hot Packs Other Therapeutic Interventions Tib/fib joint mobiliation. Next Visit Focus/Plan Next Note Type Treatment Note Next Visit Plan Next: Assess R hip pain, stair amb, balance, TUG, & sensation, L knee & gary ankle AROM, hip/ankle strengthening. JMT L tib/fib. Manual: STM inferior lower leg & mob of Tib/fib jt ROM: Ankle EV left, IV right; hip ext, gary knee ext, L knee flex. Strengthening: gary hip ext/ flex, L knee/ankle. Gait/balance training Education: RICE, edema mgmt w /hot-cold, HEP. POC: Therapeutic Ex ( strengthening/ROM), Therapeutic Activity (transfer training), manual therapy ( STM/JMT), Gait & Balance training, Pt Education (HEP, Edema and pain mgmt).
--- NOTE | 2023-12-06 09:44 | PT.OTN ---
Current Diagnoses Pain in right knee (12/06/23) Pain in left knee (12/06/23) Muscle weakness (generalized) (12/06/23) Other abnormalities of gait and mobility (12/06/23) Physical Therapy Treatment Note PT-OP-A Visit Information Start: 10/25/23 19:44 Freq: Status: Active Protocol: Document 12/06/23 09:04 SP (Rec: 12/06/23 09:50 SP [id number]) Out-Patient Physical Therapy Visit Information Visit Information Visit Type Treatment Note Visit Start Time 09:04 Visit Stop Time 09:44 Visit Number 3 Number of INTERVENTIONAL RADIOLOGIST Visits 2 Evaluation Information Evaluation Date 11/07/23 Precautions Precautions Back pain, Osteopenia, HBP semi-controlled w/meds, thyroid disorder. 07/20: L knee xray: Small joint effusion. No suspicious soft tissue calcifications. Stable left knee medial compartment hemiarthroplasty. PT-OP-B Current Condition Start: 10/25/23 19:44 Freq: Status: Active Protocol: Document 11/07/23 18:59 LRN (Rec: 11/07/23 20:35 LRN [id number]) Current Condition History of Current Condition Onset Date 01/2022 Current Complaints Intermittent L knee super & infer to lat jt line pn & ant to tib/fib & jt History of Current Condition Pt is s/p L partial knee arthroplasty, 01/[address] Guerra in [facility]. Pt states she had 7 months of PT at [facility] Physical Therapy with good results until the last day of therapy, when she pushed a cart weighing 100#, and ended up twisting at the knee causing onset of knee pain. She reports having 7 ART treatments that she reports helped her get over the initial sharp pains. She reports her pain is now intermittent, noticeably when she twists at the knee resulting in a click deep in the knee and temporary instantaneous pain. She states she does her previous G ex's sometimes, but mainly ex's at a gym 1x/week on an ex bike 45 minutes (3 miles). She reports difficulty standing after sitting in a car, requiring use of her hands to get up out of the car and must stand for ~10 secs before she is able to move and walk. Pt states she was referred to PT. Prior Treatments and Tests [facility] physical therapy for 7 months s/p L partial knee arthroplasty Treatment Goals Patient/Caregiver Goals Pt goal: - be able to sit 2 hrs in a car, then be able to get up out of the car w/o use of her hands - be able to walk after getting out of car after prolonged sitting (2 hrs) w/o having to stand 10 secs before moving. - pt agreeable to being placed on a HEP. Personal Factors Other Personal Factors That May Effect HBP not completely controlled Therapy/Recovery by meds (last taken-131/), Osteopenia, Hypothyroid (controlled by meds). PT-OP-C Subjective Start: 10/25/23 19:44 Freq: Status: Active Protocol: Document 12/06/23 09:04 SP (Rec: 12/06/23 09:50 SP [id number]) OP-PT Subjective Patient Comments Patient Comments Pt report was little more stiff and tired after last tx. She noticed getting the clicking back in her L knee but not all the time but more recently. She states R>L hip pain when walks longer distances especially on firm concrete surfaces. She can't walk whole golf course with without pain, but overall is alot better, trying to even WB distribution and lot off to R to unweight L knee. PT-OP-E Functional Tests Start: 10/25/23 19:44 Freq: Status: Active Protocol: Document 12/06/23 09:04 SP (Rec: 12/06/23 09:50 SP [id number]) Functional Tests Timed Up and Go (TUG) Score 8, 7, 7 Comments good stability and pivot turn TUG Impairment Rating 1 to <20% Impaired (Score 11) PT-OP-G Mobility & Gait Start: 10/25/23 19:44 Freq: Status: Active Protocol: Document 11/07/23 18:59 LRN (Rec: 11/07/23 20:35 LRN [id number]) OP Gait Assessment Gait Gait Assistance Required: Independent Gait Deviations General Gait Pattern Decreased Stride Length, Decreased Feet Clearance, Lateral Trunk Lean Factors Limiting Gait Function Factors Limiting Gait Function Limited Range of Motion,Pain PT-OP-J Posture/Palpation/Skin Start: 10/25/23 19:44 Freq: Status: Active Protocol: Document 11/07/23 18:59 LRN (Rec: 11/07/23 20:35 LRN [id number]) Posture Evaluation Position Standing Head/C-Spine Posture Forward Head L-Spine Posture Flattened Weight Distribution Weight Shifted Right,Decreased Wt.Bear on (L) Hip Posture (L) Externally Rotated Knee Posture (R) Genu Varus Ankle/Foot Posture (R) Pronated,(L) Supinated Palpation Assessment Location L knee Palpation Location Joint line and inferiorly Palpation Findings Edema,Tenderness Palpation Details Tender at Tib/Fib joint with PA/AP mob, and anterior to Tib /Fib joint, tibialis anterior, fib longus (PF), peroneus longus (EV). PT-OP-K Range of Motion Start: 10/25/23 19:44 Freq: Status: Active Protocol: Document 12/06/23 09:04 SP (Rec: 12/06/23 09:50 SP [id number]) Knee Goniometric Range of Motion Knee Left Patient Position Supine Flexion Active (degrees) 118 Extension Active (degrees) 6 Comments L knee supine AROM: Flexion: gain 13 deg, 118 deg> 122 deg AROM post manual Extension: gain 1 deg, 6deg PT-OP-M Strength Start: 10/25/23 19:44 Freq: Status: Active Protocol: Document 11/07/23 18:59 LRN (Rec: 11/07/23 20:35 LRN [id number]) Hip Strength Hip Manual Muscle Testing Right Flexion (L2) 4 Good Extension (S1) 3 Fair Comments Hip strength is normal except as indicated above. Left Flexion (L2) 4 Good Extension (S1) 3 Fair Comments Hip strength is normal except as indicated above. Knee Strength Knee Manual Muscle Testing Right Flexion (S2) 5 Normal Extension (L3) 5 Normal Left Flexion (S2) 4 Good Extension (L3) 4 Good Ankle/Foot Strength Ankle and Foot Manual Muscle Testing Right Comments Strength is 5/5 in all muscle groups. Left Dorsiflexion (L4) 4 Good Plantarflexion (S1) 5 Normal Inversion 4 Good Eversion (S1) 4 Good Comments Limited by pain at knee. PT-OP-Q Treatments Start: 10/25/23 19:44 Freq: Status: Active Protocol: Document 12/06/23 09:04 SP (Rec: 12/06/23 09:50 SP [id number]) Therapeutic Exercises Supine Exercises TA trng Supine Exercise Name draw in Comments extra time trng, weakness Prone Exercises prone hang Prone Exercise Name added to HEP- declined HO Reps/Minutes 1 min Comments 6 deg ext pre and post Knee flex Prone Exercise Name reviewed HEP Side left Resistance AROM Reps/Minutes 5 reps, 5 sec hold Comments tiring pnfree, future use strap for self carryover AAROM Sitting Exercises self STMs Sitting Exercise Name vashti pin: quad, HS, calf, ITB, adductor Side left Reps/Minutes 1 min total Comments reported less tension in quad Knee flex Sitting Exercise Name reviewed HEP Side left Reps/Minutes 10 reps, 5 SH x10 Comments painfree Manual Therapy Treatment Soft Tissue Mobilization L leg Body Location HS, calf, distal ITB Comments sensitive lateral knee jt line Joint Mobilizations L knee Joint tibon femur flex, femur on tib extension Comments decreased tension within knee reported patellar mob Joint L Direction med/lat/sup/inf Comments very tight medial and sup/inf Neuro Re-Education Treatment Balance Activities TUG Details 8, 7, 7 sec Comments very stable PT-OP-T Assessment and Plan Start: 10/25/23 19:44 Freq: Status: Active Protocol: Document 12/06/23 09:04 SP (Rec: 12/06/23 09:50 SP [id number]) Physical Therapy Assessment Goals Three Impairment Decreased L knee & gary ankle mobility (L EV, R IV) Short Term Goal (STG) Pt will be able to manage the edema in her L knee with use of cryotherapy and contrast heat/ice and RICE protocol for pain management. STG Duration 6 wks-12/20/23 Television Schedule Coordinator Goal (LTG) Improve L knee and gary ankle mobility with pt be able to walk after getting out of car after prolonged sitting (2 hrs ) w/o having to stand 10 secs before moving. LTG Duration 12 wks-01/31/24 Two Impairment Decreased hip/knee/ankle strength limiting sit<>stand Short Term Goal (STG) Pt will be educated in supportive posturing in a car to reduce pain and edema with travel. STG Duration 6 wks-12/20/23 Half-Way Goal (LTG) Improve gary hip/L knee & ankle strength with pt able to sit 2 hrs in a car, then be able to get up out of the car w/o use of her hands. LTG Duration 12 wks-01/31/24 One Impairment Pt lacks and is not independent w/self care HEP. Television Schedule Coordinator Goal (LTG) Pt will be independent in an effective self care HEP for core/hip/knee/ankle (L>R) strengthening and mobility ex' s (L knee/ankle/?hip). 12/04/23: prone hip ext, knee flexion, LAQ, STS, rolling pin LE. 12/06/23: TUG 8>7 sec very stable. LTG Duration 12 wks-01/31/24 progressing 12/06/23 Progress Towards Goals Progress Comments TUG 8>7sec, very stable L knee supine AROM: Flexion: gain 13 deg, 118 deg Extension: gain 1 deg, 6deg Assessment Summary Assessment Pt improved AROM 6-122 end tx post manual STMs, mobs and ther ex focusing on L knee AAROM. Initiated prone hang for support progression into L knee ext, use of rolling pin for decreased quad tension allow increase flexion AROM with good response. Pt would benefit from continued functional knee and ankle AAROM use of bike and mobility use foot on 2nd step next tx for carryover. Physical Therapy Plan Frequency and Duration Frequency of Treatment 2x/Week Duration of treatment (weeks) 12 Plan of Care Start Date 11/07/23 Plan of Care End Date 01/31/24 Therapeutic Interventions Therapeutic Interventions Home Exercise Program,Manual Therapy,Neuromuscular Re- education,Self-Care/Home Management,Soft Tissue Mobilization,Taping, Therapeutic Activities, Therapeutic Exercises Modalities Cold Pack/Ice Massage,Hot Packs Other Therapeutic Interventions Tib/fib joint mobiliation. Next Visit Focus/Plan Next Note Type Treatment Note Next Visit Plan Next: add upright bike, clamshell, knee mobility on step, santos stepping for funcitonal mobility progression, prone use strap L knee AAROM flexion. Remeasure AROM pre/ post tx. PT POC: stair amb, balance, sensation, L knee & gary ankle AROM, hip/ankle strengthening. JMT L tib/fib. Manual: STM inferior lower leg & mob of Tib/fib jt ROM: Ankle EV left, IV right; hip ext, gary knee ext, L knee flex. Strengthening: gary hip ext/ flex, L knee/ankle. Gait/balance training Education: RICE, edema mgmt w /hot-cold, HEP. POC: Therapeutic Ex ( strengthening/ROM), Therapeutic Activity (transfer training), manual therapy ( STM/JMT), Gait & Balance training, Pt Education (HEP, Edema and pain mgmt).
--- NOTE | 2023-12-10 10:34 | PT.OTN ---
Current Diagnoses Pain in right knee (12/10/23) Pain in left knee (12/10/23) Muscle weakness (generalized) (12/10/23) Other abnormalities of gait and mobility (12/10/23) Physical Therapy Treatment Note PT-OP-A Visit Information Start: 10/25/23 19:44 Freq: Status: Active Protocol: Document 12/10/23 09:50 SP (Rec: 12/10/23 10:36 SP [id number]) Out-Patient Physical Therapy Visit Information Visit Information Visit Type Treatment Note Visit Start Time 09:50 Visit Stop Time 10:34 Visit Number 40 Number of [employer] EXCHANGE ADMINISTRATOR Visits 3 Evaluation Information Evaluation Date 11/07/23 Precautions Precautions Back pain, Osteopenia, HBP semi-controlled w/meds, thyroid disorder. 07/20: L knee xray: Small joint effusion. No suspicious soft tissue calcifications. Stable left knee medial compartment hemiarthroplasty. PT-OP-B Current Condition Start: 10/25/23 19:44 Freq: Status: Active Protocol: Document 11/07/23 18:59 LRN (Rec: 11/07/23 20:35 LRN [id number]) Current Condition History of Current Condition Onset Date 01/2022 Current Complaints Intermittent L knee super & infer to lat jt line pn & ant to tib/fib & jt History of Current Condition Pt is s/p L partial knee arthroplasty, 01/[address] Guerra in [facility]. Pt states she had [address] [facility] Physical Therapy with good results until the last day of therapy, when she pushed a cart weighing 100#, and ended up twisting at the knee causing onset of knee pain. She reports having 7 ART treatments that she reports helped her get over the initial sharp pains. She reports her pain is now intermittent, noticeably when she twists at the knee resulting in a click deep in the knee and temporary instantaneous pain. She states she does her previous G ex's sometimes, but mainly ex's at a gym 1x/week on an ex bike 45 minutes (3 miles). She reports difficulty standing after sitting in a car, requiring use of her hands to get up out of the car and must stand for ~10 secs before she is able to move and walk. Pt states she was referred to PT. Prior Treatments and Tests [facility] physical therapy for 7 months s/p L partial knee arthroplasty Treatment Goals Patient/Caregiver Goals Pt goal: - be able to sit 2 hrs in a car, then be able to get up out of the car w/o use of her hands - be able to walk after getting out of car after prolonged sitting (2 hrs) w/o having to stand 10 secs before moving. - pt agreeable to being placed on a HEP. Personal Factors Other Personal Factors That May Effect HBP not completely controlled Therapy/Recovery by meds (last taken-), Osteopenia, Hypothyroid (controlled by meds). PT-OP-C Subjective Start: 10/25/23 19:44 Freq: Status: Active Protocol: Document 12/10/23 09:50 SP (Rec: 12/10/23 10:36 SP [id number]) OP-PT Subjective Patient Comments Patient Comments Pt reports was at [employer] and trialed prone hamstring curl machine and wasn't able to perform R leg curl with no weight suprised her R leg was so weak. She stated she doesn't have to stand still check knee ROM before walking after sitting for while. PT-OP-E Functional Tests Start: 10/25/23 19:44 Freq: Status: Active Protocol: Document 12/06/23 09:04 SP (Rec: 12/06/23 09:50 SP [id number]) Functional Tests Timed Up and Go (TUG) Score 8, 7, 7 Comments good stability and pivot turn TUG Impairment Rating 1 to <20% Impaired (Score 11) PT-OP-G Mobility & Gait Start: 10/25/23 19:44 Freq: Status: Active Protocol: Document 11/07/23 18:59 LRN (Rec: 11/07/23 20:35 LRN [id number]) OP Gait Assessment Gait Gait Assistance Required: Independent Gait Deviations General Gait Pattern Decreased Stride Length, Decreased Feet Clearance, Lateral Trunk Lean Factors Limiting Gait Function Factors Limiting Gait Function Limited Range of Motion,Pain PT-OP-J Posture/Palpation/Skin Start: 10/25/23 19:44 Freq: Status: Active Protocol: Document 11/07/23 18:59 LRN (Rec: 11/07/23 20:35 LRN [id number]) Posture Evaluation Position Standing Head/C-Spine Posture Forward Head L-Spine Posture Flattened Weight Distribution Weight Shifted Right,Decreased Wt.Bear on (L) Hip Posture (L) Externally Rotated Knee Posture (R) Genu Varus Ankle/Foot Posture (R) Pronated,(L) Supinated Palpation Assessment Location L knee Palpation Location Joint line and inferiorly Palpation Findings Edema,Tenderness Palpation Details Tender at Tib/Fib joint with PA/AP mob, and anterior to Tib /Fib joint, tibialis anterior, fib longus (PF), peroneus longus (EV). PT-OP-K Range of Motion Start: 10/25/23 19:44 Freq: Status: Active Protocol: Document 12/10/23 09:50 SP (Rec: 12/10/23 10:36 SP [id number]) Knee Goniometric Range of Motion Knee Left Patient Position Supine Flexion Active (degrees) 118 Extension Active (degrees) 6 Comments L knee AROM: 7-115 deg pre activity, PROM flexion 118deg PT-OP-M Strength Start: 10/25/23 19:44 Freq: Status: Active Protocol: Document 11/07/23 18:59 LRN (Rec: 11/07/23 20:35 LRN [id number]) Hip Strength Hip Manual Muscle Testing Right Flexion (L2) 4 Good Extension (S1) 3 Fair Comments Hip strength is normal except as indicated above. Left Flexion (L2) 4 Good Extension (S1) 3 Fair Comments Hip strength is normal except as indicated above. Knee Strength Knee Manual Muscle Testing Right Flexion (S2) 5 Normal Extension (L3) 5 Normal Left Flexion (S2) 4 Good Extension (L3) 4 Good Ankle/Foot Strength Ankle and Foot Manual Muscle Testing Right Comments Strength is 5/5 in all muscle groups. Left Dorsiflexion (L4) 4 Good Plantarflexion (S1) 5 Normal Inversion 4 Good Eversion (S1) 4 Good Comments Limited by pain at knee. PT-OP-Q Treatments Start: 10/25/23 19:44 Freq: Status: Active Protocol: Document 12/10/23 09:50 SP (Rec: 12/10/23 10:36 SP [id number]) Cardio Equipment Recumbent Bicycle Duration (Minutes) 4 Resistance 5 Seat Position in 6 Other initially clicking then went away, same as gym- 50-52 RPMs Therapeutic Exercises Supine Exercises stretching Supine Exercise Name FIg 4, piriformis, HS- trialed in PT Side left Reps/Minutes 30 each Comments good anterior hip, posterior hip, not much piriformis stretch felt- painfre SAQ Supine Exercise Name trialed in PT for active ext fac Side left Resistance AROM Equipment Used over foam roller Reps/Minutes x15, pause end feel Comments pnfree, cues for keep thigh on roller, lift foot Prone Exercises Knee flex Prone Exercise Name reviewed HEP Side left Resistance 1. AROM 2. AAROM Reps/Minutes 1.5 reps, 5 sec hold 2. 30 SH Comments 1. HS tiring 2. good quad stretch Hip Ext Prone Exercise Name HEP reviewed Side left Resistance AROM Reps/Minutes 5 x2 reps Comments cued TA draw in, TKE- improved form with reps Sidelying Exercises clamshell Sidelying Exercise Name initiated in PT- Side left Resistance AROM Equipment Used yoga pad on table for added cushion Reps/Minutes 2x10 Comments Verbal &tactile cues for TA support, wobble reduction Sitting Exercises self STMs Sitting Exercise Name vashti pin: quad Side left Reps/Minutes 1 min total Comments reported less tension in quad Standing Exercises calf stretch Standing Exercise Name self HEP review- lunge pos Side left Reps/Minutes 30 knee mobility Standing Exercise Name trialed in PT Side left Resistance AAROM Equipment Used rail support Reps/Minutes x10 Comments cues knee over toes, pnfree range PT-OP-T Assessment and Plan Start: 10/25/23 19:44 Freq: Status: Active Protocol: Document 12/10/23 09:50 SP (Rec: 12/10/23 10:36 SP [id number]) Physical Therapy Assessment Goals Three Impairment Decreased L knee & gary ankle mobility (L EV, R IV) Short Term Goal (STG) Pt will be able to manage the edema in her L knee with use of cryotherapy and contrast heat/ice and RICE protocol for pain management. 12/10/23: GOAL MET: pt states uses CP on knee and elevates if needed for swelling mgt. STG Duration 6 wks-12/20/23 GOAL MET Nitro Man Goal (LTG) Improve L knee and gary ankle mobility with pt be able to walk after getting out of car after prolonged sitting (2 hrs ) w/o having to stand 10 secs before moving. 12/10/23: Progressing: pt reports hasn't driven long distances but when gets up from seated in chair for little bit, getting easier, not having to stand still for balance assess. LTG Duration 12 wks-01/31/24 progressing Two Impairment Decreased hip/knee/ankle strength limiting sit<>stand Short Term Goal (STG) Pt will be educated in supportive posturing in a car to reduce pain and edema with travel. STG Duration 6 wks-12/20/23 Senior Living Goal (LTG) Improve gary hip/L knee & ankle strength with pt able to sit 2 hrs in a car, then be able to get up out of the car w/o use of her hands. 12/10/23: added clamshell, SAQ, stretching:fig4, HS,prone quad/c strap, standing knee flexion mobility on step. LTG Duration 12 wks-01/31/24 progressing One Impairment Pt lacks and is not independent w/self care HEP. Senior Living Goal (LTG) Pt will be independent in an effective self care HEP for core/hip/knee/ankle (L>R) strengthening and mobility ex' s (L knee/ankle/?hip). 12/04/23: prone hip ext, knee flexion, LAQ, STS, rolling pin LE. 12/06/23: TUG 8>7 sec very stable. 12/10/23: added clasebastianl, SAQ, fig 4&HS&quad stretch, AAROM knee flexion ROM use chair. LTG Duration 12 wks-01/31/24 progressing Assessment Summary Assessment Decreased AROM 7-115deg post bike compared to end previous tx 6-122deg: did not remeasure end tx today for comparison to arrival. Pt reports being more active in [employer] gym found weakness HS curl. Initiated clamshell and SAQ to for hip abductor and quad strengthening today with reports muscle tiring and stretching to assist increase L knee ROM. Pt is seeing gains in les stiffness coming to standing after sitting for 10 min, not need to stand still before walking. Physical Therapy Plan Frequency and Duration Frequency of Treatment 2x/Week Duration of treatment (weeks) 12 Plan of Care Start Date 11/07/23 Plan of Care End Date 01/31/24 Therapeutic Interventions Therapeutic Interventions Home Exercise Program,Manual Therapy,Neuromuscular Re- education,Self-Care/Home Management,Soft Tissue Mobilization,Taping, Therapeutic Activities, Therapeutic Exercises Modalities Cold Pack/Ice Massage,Hot Packs Other Therapeutic Interventions Tib/fib joint mobiliation. Next Visit Focus/Plan Next Note Type Treatment Note Next Visit Plan Remeasure AROM pre/ post tx. Warm up right bike Review HEP: added: LADI abad, stretching: FIg 4/HS/prone quad/c strap, standing knee flexion mobility /c 2nd step. Next: trial step ups, santos stepping for funcitonal mobility progression. PT POC: stair amb, balance, sensation, L knee & gary ankle AROM, hip/ankle strengthening. JMT L tib/fib. Manual: STM inferior lower leg & mob of Tib/fib jt ROM: Ankle EV left, IV right; continue hip ext, gary knee ext, L knee flex. Strengthening: gary hip ext/ flex, L knee/ankle. Gait/balance training Education: RICE, edema mgmt w /hot-cold, HEP. POC: Therapeutic Ex ( strengthening/ROM), Therapeutic Activity (transfer training), manual therapy ( STM/JMT), Gait & Balance training, Pt Education (HEP, Edema and pain mgmt).
--- NOTE | 2023-12-17 16:33 | PT.OTN ---
Current Diagnoses Pain in right knee (12/17/23) Pain in left knee (12/17/23) Muscle weakness (generalized) (12/17/23) Other abnormalities of gait and mobility (12/17/23) Physical Therapy Treatment Note PT-OP-A Visit Information Start: 10/25/23 19:44 Freq: Status: Active Protocol: Document 12/17/23 09:10 LRN (Rec: 12/17/23 12:10 LRN [id number]) Out-Patient Physical Therapy Visit Information Visit Information Visit Type Treatment Note Visit Start Time 09:10 Visit Stop Time 09:48 Visit Number 5 Evaluation Information Evaluation Date 11/07/23 Precautions Precautions Back pain, Osteopenia, HBP semi-controlled w/meds, thyroid disorder. 07/20: L knee xray: Small joint effusion. No suspicious soft tissue calcifications. Stable left knee medial compartment hemiarthroplasty. PT-OP-B Current Condition Start: 10/25/23 19:44 Freq: Status: Active Protocol: Document 11/07/23 18:59 LRN (Rec: 11/07/23 20:35 LRN [id number]) Current Condition History of Current Condition Onset Date 01/2022 Current Complaints Intermittent L knee super & infer to lat jt line pn & ant to tib/fib & jt History of Current Condition Pt is s/p L partial knee arthroplasty, 01/[address] Guerra in [facility]. Pt states she had 7 months of PT at [facility] Physical Therapy with good results until the last day of therapy, when she pushed a cart weighing 100#, and ended up twisting at the knee causing onset of knee pain. She reports having 7 ART treatments that she reports helped her get over the initial sharp pains. She reports her pain is now intermittent, noticeably when she twists at the knee resulting in a click deep in the knee and temporary instantaneous pain. She states she does her previous IR[facility] ex's sometimes, but mainly ex's at a gym 1x/week on an ex bike 45 minutes (3 miles). She reports difficulty standing after sitting in a car, requiring use of her hands to get up out of the car and must stand for ~10 secs before she is able to move and walk. Pt states she was referred to PT. Prior Treatments and Tests [facility] physical therapy for 7 months s/p L partial knee arthroplasty Treatment Goals Patient/Caregiver Goals Pt goal: - be able to sit 2 hrs in a car, then be able to get up out of the car w/o use of her hands - be able to walk after getting out of car after prolonged sitting (2 hrs) w/o having to stand 10 secs before moving. - pt agreeable to being placed on a HEP. Personal Factors Other Personal Factors That May Effect HBP not completely controlled Therapy/Recovery by meds (last taken-), Osteopenia, Hypothyroid (controlled by meds). PT-OP-C Subjective Start: 10/25/23 19:44 Freq: Status: Active Protocol: Document 12/17/23 09:10 LRN (Rec: 12/17/23 12:10 LRN [id number]) OP-PT Subjective Patient Comments Patient Comments States has been stretching ( knee ext in prone) at home with 5# wgt. Stiffness of knees still persist after sitting in car long time. PT-OP-E Functional Tests Start: 10/25/23 19:44 Freq: Status: Active Protocol: Document 12/06/23 09:04 SP (Rec: 12/06/23 09:50 SP [id number]) Functional Tests Timed Up and Go (TUG) Score 8, 7, 7 Comments good stability and pivot turn TUG Impairment Rating 1 to <20% Impaired (Score 11) PT-OP-G Mobility & Gait Start: 10/25/23 19:44 Freq: Status: Active Protocol: Document 11/07/23 18:59 LRN (Rec: 11/07/23 20:35 LRN [id number]) OP Gait Assessment Gait Gait Assistance Required: Independent Gait Deviations General Gait Pattern Decreased Stride Length, Decreased Feet Clearance, Lateral Trunk Lean Factors Limiting Gait Function Factors Limiting Gait Function Limited Range of Motion,Pain PT-OP-J Posture/Palpation/Skin Start: 10/25/23 19:44 Freq: Status: Active Protocol: Document 11/07/23 18:59 LRN (Rec: 11/07/23 20:35 LRN [id number]) Posture Evaluation Position Standing Head/C-Spine Posture Forward Head L-Spine Posture Flattened Weight Distribution Weight Shifted Right,Decreased Wt.Bear on (L) Hip Posture (L) Externally Rotated Knee Posture (R) Genu Varus Ankle/Foot Posture (R) Pronated,(L) Supinated Palpation Assessment Location L knee Palpation Location Joint line and inferiorly Palpation Findings Edema,Tenderness Palpation Details Tender at Tib/Fib joint with PA/AP mob, and anterior to Tib /Fib joint, tibialis anterior, fib longus (PF), peroneus longus (EV). PT-OP-K Range of Motion Start: 10/25/23 19:44 Freq: Status: Active Protocol: Document 12/17/23 09:10 LRN (Rec: 12/17/23 12:10 LRN [id number]) Knee Goniometric Range of Motion Knee Left Patient Position Supine Flexion Active (degrees) 115 Extension Active (degrees) 7 Ankle and Foot Goniometric Range of Motion Ankle and Foot Right Passive Testing Position Supine Inversion 15 Eversion 10 Left Active Testing Position Supine Inversion 10 Eversion 10 PT-OP-M Strength Start: 10/25/23 19:44 Freq: Status: Active Protocol: Document 11/07/23 18:59 LRN (Rec: 11/07/23 20:35 LRN [id number]) Hip Strength Hip Manual Muscle Testing Right Flexion (L2) 4 Good Extension (S1) 3 Fair Comments Hip strength is normal except as indicated above. Left Flexion (L2) 4 Good Extension (S1) 3 Fair Comments Hip strength is normal except as indicated above. Knee Strength Knee Manual Muscle Testing Right Flexion (S2) 5 Normal Extension (L3) 5 Normal Left Flexion (S2) 4 Good Extension (L3) 4 Good Ankle/Foot Strength Ankle and Foot Manual Muscle Testing Right Comments Strength is 5/5 in all muscle groups. Left Dorsiflexion (L4) 4 Good Plantarflexion (S1) 5 Normal Inversion 4 Good Eversion (S1) 4 Good Comments Limited by pain at knee. PT-OP-Q Treatments Start: 10/25/23 19:44 Freq: Status: Active Protocol: Document 12/17/23 09:10 LRN (Rec: 12/17/23 12:10 LRN [id number]) Cardio Equipment Recumbent Bicycle Duration (Minutes) 4 Resistance 5 Seat Position in 6 Other initially clicking then went away, same as gym- 50-52 RPMs Therapeutic Exercises Supine Exercises Ankle AROM Supine Exercise Name Ankle IV/EV AROM Side bilateral Reps/Minutes 10' Comments Ankle IV/EV ROM taken L knee AROM Side left Reps/Minutes 1' Comments ROM taken stretching Supine Exercise Name Active & passive Knee flex/ext stretch Side left Reps/Minutes 16' Prone Exercises prone hang Prone Exercise Name Long discussion of pt stretching at home, I/S pt to use 2# at home not 5#. Reps/Minutes 3' Sidelying Exercises clamshell Side left Resistance AROM Reps/Minutes 2x10 Comments Extra time taken to max stability of core during ex. Self-Care/Home Management Treatment Education Other Education Pt requested discussion of symptoms she was experiencing of possible UTI. Recommended pt see MD for assessment. PT-OP-T Assessment and Plan Start: 10/25/23 19:44 Freq: Status: Active Protocol: Document 12/17/23 09:10 LRN (Rec: 12/17/23 12:10 LRN [id number]) Physical Therapy Assessment Goals Three Impairment Decreased L knee & gary ankle mobility (L EV, R IV) Short Term Goal (STG) Pt will be able to manage the edema in her L knee with use of cryotherapy and contrast heat/ice and RICE protocol for pain management. 12/10/23: GOAL MET: pt states uses CP on knee and elevates if needed for swelling mgt. STG Duration 6 wks-12/20/23 GOAL MET Tire Assembler Goal (LTG) Improve L knee and gary ankle mobility with pt be able to walk after getting out of car after prolonged sitting (2 hrs ) w/o having to stand 10 secs before moving. 12/10/23: Progressing: pt reports hasn't driven long distances but when gets up from seated in chair for little bit, getting easier, not having to stand still for balance assess. LTG Duration 12 wks-01/31/24 progressing Two Impairment Decreased hip/knee/ankle strength limiting sit<>stand Short Term Goal (STG) Pt will be educated in supportive posturing in a car to reduce pain and edema with travel. STG Duration 6 wks-12/20/23 Tire Assembler Goal (LTG) Improve gary hip/L knee & ankle strength with pt able to sit 2 hrs in a car, then be able to get up out of the car w/o use of her hands. 12/10/23: added pollo, SAQ, stretching:fig4, HS,prone quad/c strap, standing knee flexion mobility on step. LTG Duration 12 wks-01/31/24 progressing One Impairment Pt lacks and is not independent w/self care HEP. Tire Assembler Goal (LTG) Pt will be independent in an effective self care HEP for core/hip/knee/ankle (L>R) strengthening and mobility ex' s (L knee/ankle/?hip). 12/04/23: prone hip ext, knee flexion, LAQ, STS, rolling pin LE. 12/06/23: TUG 8>7 sec very stable. 12/10/23: added clamshell, SAQ, fig 4&HS&quad stretch, AAROM knee flexion ROM use chair. LTG Duration 12 wks-01/31/24 progressing Assessment Summary Assessment Pt is a 72 yo female ~14 months s/p L partial knee arthroplasty. Initially presented with L knee weakness , decreased mobility, R knee/ hip pain, antalgic gait, edema , stiffness/pain at L knee after prolonged sitting, and decreased sitting and walking function, after injury on the last day of her rehab for her partial knee arthroplasty at local [facility]. Today the pt's primary c/o is of stiffness of knees after prolonged sitting , previously describing after 20' of sitting. Pt has been too aggressive with prone knee stretching (using 5# wgt). After knee flex stretching pt reported noticing more clicking in the L knee with AROM; therefore further assessment is needed. Physical Therapy Plan Frequency and Duration Frequency of Treatment 2x/Week Duration of treatment (weeks) 12 Plan of Care Start Date 11/07/23 Plan of Care End Date 01/31/24 Next Visit Focus/Plan Next Note Type Treatment Note Next Visit Plan Assess for clicking of L knee with ROM. Monitor AROM pre/post tx. Warm up right bike Review HEP for appropriateness: SAQ, stretching: FIg 4/HS/prone quad/c strap, standing knee flexion mobility /c 2nd step. Next: trial step ups, santos stepping for functional mobility progression. PT POC: stair amb, balance, sensation, L knee & gary ankle AROM, hip/ankle strengthening. JMT L tib/fib. Manual: STM inferior lower leg & mob of Tib/fib jt ROM: Ankle EV left, IV right; continue hip ext, gary knee ext, L knee flex. Strengthening: gary hip ext/ flex, L knee/ankle. Gait/balance training Education: RICE, edema mgmt w /hot-cold, HEP. POC: Therapeutic Ex ( strengthening/ROM), Therapeutic Activity (transfer training), manual therapy ( STM/JMT), Gait & Balance training, Pt Education (HEP, Edema and pain mgmt).
--- NOTE | 2023-12-19 17:21 | PT.OTN ---
Current Diagnoses Pain in right knee (12/19/23) Pain in left knee (12/19/23) Muscle weakness (generalized) (12/19/23) Other abnormalities of gait and mobility (12/19/23) Physical Therapy Treatment Note PT-OP-A Visit Information Start: 10/25/23 19:44 Freq: Status: Active Protocol: Document 12/19/23 09:10 LRN (Rec: 12/19/23 09:53 LRN [id number]) Out-Patient Physical Therapy Visit Information Visit Information Visit Type Treatment Note Visit Start Time 09:10 Visit Stop Time 09:53 Visit Number 6 Evaluation Information Evaluation Date 11/07/23 Precautions Precautions Back pain, Osteopenia, HBP semi-controlled w/meds, thyroid disorder. 07/20: L knee xray: Small joint effusion. No suspicious soft tissue calcifications. Stable left knee medial compartment hemiarthroplasty. PT-OP-B Current Condition Start: 10/25/23 19:44 Freq: Status: Active Protocol: Document 11/07/23 18:59 LRN (Rec: 11/07/23 20:35 LRN [id number]) Current Condition History of Current Condition Onset Date 01/2022 Current Complaints Intermittent L knee super & infer to lat jt line pn & ant to tib/fib & jt History of Current Condition Pt is s/p L partial knee arthroplasty, 01/[address] Guerra in [facility]. Pt states she had 7 months of PT at [facility] Physical Therapy with good results until the last day of therapy, when she pushed a cart weighing 100#, and ended up twisting at the knee causing onset of knee pain. She reports having 7 ART treatments that she reports helped her get over the initial sharp pains. She reports her pain is now intermittent, noticeably when she twists at the knee resulting in a click deep in the knee and temporary instantaneous pain. She states she does her previous [facility] ex's sometimes, but mainly ex's at a gym 1x/week on an ex bike 45 minutes (3 miles). She reports difficulty standing after sitting in a car, requiring use of her hands to get up out of the car and must stand for ~10 secs before she is able to move and walk. Pt states she was referred to PT. Prior Treatments and Tests [facility] physical therapy for 7 months s/p L partial knee arthroplasty Treatment Goals Patient/Caregiver Goals Pt goal: - be able to sit 2 hrs in a car, then be able to get up out of the car w/o use of her hands - be able to walk after getting out of car after prolonged sitting (2 hrs) w/o having to stand 10 secs before moving. - pt agreeable to being placed on a HEP. Personal Factors Other Personal Factors That May Effect HBP not completely controlled Therapy/Recovery by meds (last taken-), Osteopenia, Hypothyroid (controlled by meds). PT-OP-C Subjective Start: 10/25/23 19:44 Freq: Status: Active Protocol: Document 12/19/23 09:10 LRN (Rec: 12/19/23 09:53 LRN [id number]) OP-PT Subjective Patient Comments Patient Comments States she has no clicking at the knee this morning. PT-OP-E Functional Tests Start: 10/25/23 19:44 Freq: Status: Active Protocol: Document 12/06/23 09:04 SP (Rec: 12/06/23 09:50 SP [id number]) Functional Tests Timed Up and Go (TUG) Score 8, 7, 7 Comments good stability and pivot turn TUG Impairment Rating 1 to <20% Impaired (Score 11) PT-OP-G Mobility & Gait Start: 10/25/23 19:44 Freq: Status: Active Protocol: Document 11/07/23 18:59 LRN (Rec: 11/07/23 20:35 LRN [id number]) OP Gait Assessment Gait Gait Assistance Required: Independent Gait Deviations General Gait Pattern Decreased Stride Length, Decreased Feet Clearance, Lateral Trunk Lean Factors Limiting Gait Function Factors Limiting Gait Function Limited Range of Motion,Pain PT-OP-J Posture/Palpation/Skin Start: 10/25/23 19:44 Freq: Status: Active Protocol: Document 11/07/23 18:59 LRN (Rec: 11/07/23 20:35 LRN [id number]) Posture Evaluation Position Standing Head/C-Spine Posture Forward Head L-Spine Posture Flattened Weight Distribution Weight Shifted Right,Decreased Wt.Bear on (L) Hip Posture (L) Externally Rotated Knee Posture (R) Genu Varus Ankle/Foot Posture (R) Pronated,(L) Supinated Palpation Assessment Location L knee Palpation Location Joint line and inferiorly Palpation Findings Edema,Tenderness Palpation Details Tender at Tib/Fib joint with PA/AP mob, and anterior to Tib /Fib joint, tibialis anterior, fib longus (PF), peroneus longus (EV). PT-OP-K Range of Motion Start: 10/25/23 19:44 Freq: Status: Active Protocol: Document 12/19/23 09:10 LRN (Rec: 12/19/23 09:53 LRN [id number]) Knee Goniometric Range of Motion Knee Right Knee ROM WFL Yes Patient Position Supine Flexion Active (degrees) 128 Left Patient Position Supine Flexion Active (degrees) 118 Extension Active (degrees) 7 Comments s/p: Flex 120 deg's, ext 7 deg's. Ankle and Foot Goniometric Range of Motion Ankle and Foot Right Active Testing Position Supine Inversion 15 Eversion 10 PT-OP-M Strength Start: 10/25/23 19:44 Freq: Status: Active Protocol: Document 11/07/23 18:59 LRN (Rec: 11/07/23 20:35 LRN [id number]) Hip Strength Hip Manual Muscle Testing Right Flexion (L2) 4 Good Extension (S1) 3 Fair Comments Hip strength is normal except as indicated above. Left Flexion (L2) 4 Good Extension (S1) 3 Fair Comments Hip strength is normal except as indicated above. Knee Strength Knee Manual Muscle Testing Right Flexion (S2) 5 Normal Extension (L3) 5 Normal Left Flexion (S2) 4 Good Extension (L3) 4 Good Ankle/Foot Strength Ankle and Foot Manual Muscle Testing Right Comments Strength is 5/5 in all muscle groups. Left Dorsiflexion (L4) 4 Good Plantarflexion (S1) 5 Normal Inversion 4 Good Eversion (S1) 4 Good Comments Limited by pain at knee. PT-OP-Q Treatments Start: 10/25/23 19:44 Freq: Status: Active Protocol: Document 12/19/23 09:10 LRN (Rec: 12/19/23 09:53 LRN [id number]) Therapeutic Exercises Supine Exercises Ankle AROM Supine Exercise Name Ankle IV/EV AROM Side right Reps/Minutes 2' Comments Ankle IV/EV ROM taken stretching Supine Exercise Name Active & passive Knee flex/ext stretch, FIg 4, piriformis, HS Side left Reps/Minutes 30 each Comments good anterior hip, posterior hip, not much piriformis stretch felt- painfre Prone Exercises Knee flex Prone Exercise Name Knee flex C/R stretch w/MFR Side left Standing Exercises Step ups Side bilateral Reps/Minutes 10x each Comments Cued to control descent of body with RLE Lowering calf stretch Standing Exercise Name self HEP review- lunge pos Side left Reps/Minutes 30 x 2 Other Exercises Long sit HS stretch Other Exercise Name Stretch f/b QSx 10 Side left Reps/Minutes HS stretch, f/b 5 SH QS x 10 Manual Therapy Treatment Soft Tissue Mobilization L Quads Mobilization Type Myofascial Release Intensity/Depth Moderate Body Position Prone Comments L Quads (see prone knee flex stretch above) L leg Body Location Hamstring tendons Mobilization Type Strumming Intensity/Depth Moderate Body Position Long sit Comments General oscillation to knee also given PT-OP-T Assessment and Plan Start: 10/25/23 19:44 Freq: Status: Active Protocol: Document 12/19/23 09:10 LRN (Rec: 12/19/23 09:53 LRN [id number]) Physical Therapy Assessment Goals Three Impairment Decreased L knee & gray ankle mobility (L EV, R IV) Short Term Goal (STG) Pt will be able to manage the edema in her L knee with use of cryotherapy and contrast heat/ice and RICE protocol for pain management. 12/10/23: GOAL MET: pt states uses CP on knee and elevates if needed for swelling mgt. STG Duration 6 wks-12/20/23 GOAL MET Shelter Goal (LTG) Improve L knee and gary ankle mobility with pt be able to walk after getting out of car after prolonged sitting (2 hrs ) w/o having to stand 10 secs before moving. 12/10/23: Progressing: pt reports hasn't driven long distances but when gets up from seated in chair for little bit, getting easier, not having to stand still for balance assess. LTG Duration 12 wks-01/31/24 progressing Two Impairment Decreased hip/knee/ankle strength limiting sit<>stand Short Term Goal (STG) Pt will be educated in supportive posturing in a car to reduce pain and edema with travel. STG Duration 6 wks-12/20/23 Tong Setter Goal (LTG) Improve gary hip/L knee & ankle strength with pt able to sit 2 hrs in a car, then be able to get up out of the car w/o use of her hands. 12/10/23: added LADI abad, stretching:fig4, HS,prone quad/c strap, standing knee flexion mobility on step. LTG Duration 12 wks-01/31/24 progressing One Impairment Pt lacks and is not independent w/self care HEP. Tong Setter Goal (LTG) Pt will be independent in an effective self care HEP for core/hip/knee/ankle (L>R) strengthening and mobility ex' s (L knee/ankle/?hip). 12/04/23: prone hip ext, knee flexion, LAQ, STS, rolling pin LE. 12/06/23: TUG 8>7 sec very stable. 12/10/23: added LADI abad, fig 4&HS&quad stretch, AAROM knee flexion ROM use chair. LTG Duration 12 wks-01/31/24 progressing Assessment Summary Assessment Pt is a 72 yo female s/p L partial knee arthroplasty () who initially presented with L knee weakness, decreased mobility, R knee/hip pain, antalgic gait, edema & stiffness/pain at L knee after prolonged sitting; therefore decreased walking function after sitting (pt reportedly had her rehab at [facility] PT with new pain onset on her last day ). Today the pt is not having clicking at the knee and after manual prone quad C/R stretching showed improved knee flex mobility and pt left therapy feeling really good . Pt had still used 5# wgt for knee ext prone stretch at home. Pt tends to be aggressive with her stretching at home. Fig 4 stretch needed R>L hip. Steps ups well tolerated w/o c/o pain. Physical Therapy Plan Frequency and Duration Frequency of Treatment 2x/Week Duration of treatment (weeks) 12 Plan of Care Start Date 11/07/23 Plan of Care End Date 01/31/24 Next Visit Focus/Plan Next Note Type Treatment Note Next Visit Plan Monitor AROM pre/post tx. Might try to start upright bike (vs recumbent) for L knee ext, then flex stretching. Review HEP for appropriateness : SAQ, stretching: HS/prone quad w/strap, standing knee flexion mobility /c 2nd step. Next: santos stepping for functional mobility progression. PT POC: stair amb, balance, sensation, L knee & gary ankle AROM, hip/ankle strengthening. JMT L tib/fib. Manual: STM inferior lower leg & mob of Tib/fib jt ROM: Ankle EV left, IV right; continue hip ext, gary knee ext, L knee flex. Strengthening: gary hip ext/ flex, L knee/ankle. Gait/balance training Education: RICE, edema mgmt w /hot-cold, HEP. POC: Therapeutic Ex ( strengthening/ROM), Therapeutic Activity (transfer training), manual therapy ( STM/JMT), Gait & Balance training, Pt Education (HEP, Edema and pain mgmt).
--- NOTE | 2023-12-23 09:30 | PT.OTN ---
Current Diagnoses Pain in right knee (12/23/23) Pain in left knee (12/23/23) Muscle weakness (generalized) (12/23/23) Other abnormalities of gait and mobility (12/23/23) Physical Therapy Treatment Note PT-OP-A Visit Information Start: 10/25/23 19:44 Freq: Status: Active Protocol: Document 12/23/23 09:04 LRN (Rec: 12/23/23 09:29 LRN [id number]) Out-Patient Physical Therapy Visit Information Visit Information Visit Type Treatment Note Visit Start Time 09:04 Visit Stop Time 09:18 Visit Number 7 Evaluation Information Evaluation Date 11/07/23 Precautions Precautions Back pain, Osteopenia, HBP semi-controlled w/meds, thyroid disorder. 07/20: L knee xray: Small joint effusion. No suspicious soft tissue calcifications. Stable left knee medial compartment hemiarthroplasty. PT-OP-B Current Condition Start: 10/25/23 19:44 Freq: Status: Active Protocol: Document 11/07/23 18:59 LRN (Rec: 11/07/23 20:35 LRN [id number]) Current Condition History of Current Condition Onset Date 01/2022 Current Complaints Intermittent L knee super & infer to lat jt line pn & ant to tib/fib & jt History of Current Condition Pt is s/p L partial knee arthroplasty, 01/[address] Guerra in [facility]. Pt states she had 7 months of PT at [facility] Physical Therapy with good results until the last day of therapy, when she pushed a cart weighing 100#, and ended up twisting at the knee causing onset of knee pain. She reports having 7 ART treatments that she reports helped her get over the initial sharp pains. She reports her pain is now intermittent, noticeably when she twists at the knee resulting in a click deep in the knee and temporary instantaneous pain. She states she does her previous IRG ex's sometimes, but mainly ex's at a gym 1x/week on an ex bike 45 minutes (3 miles). She reports difficulty standing after sitting in a car, requiring use of her hands to get up out of the car and must stand for ~10 secs before she is able to move and walk. Pt states she was referred to PT. Prior Treatments and Tests [facility] physical therapy for 7 months s/p L partial knee arthroplasty Treatment Goals Patient/Caregiver Goals Pt goal: - be able to sit 2 hrs in a car, then be able to get up out of the car w/o use of her hands - be able to walk after getting out of car after prolonged sitting (2 hrs) w/o having to stand 10 secs before moving. - pt agreeable to being placed on a HEP. Personal Factors Other Personal Factors That May Effect HBP not completely controlled Therapy/Recovery by meds (last taken-131/84), Osteopenia, Hypothyroid (controlled by meds). PT-OP-C Subjective Start: 10/25/23 19:44 Freq: Status: Active Protocol: Document 12/23/23 09:04 LRN (Rec: 12/23/23 09:29 LRN [id number]) OP-PT Subjective Patient Comments Patient Comments States her BP is 159/102 ( normal systolic ~131). States the L knee has been feeling good. PT-OP-E Functional Tests Start: 10/25/23 19:44 Freq: Status: Active Protocol: Document 12/06/23 09:04 SP (Rec: 12/06/23 09:50 SP [id number]) Functional Tests Timed Up and Go (TUG) Score 8, 7, 7 Comments good stability and pivot turn TUG Impairment Rating 1 to <20% Impaired (Score 11) PT-OP-G Mobility & Gait Start: 10/25/23 19:44 Freq: Status: Active Protocol: Document 11/07/23 18:59 LRN (Rec: 11/07/23 20:35 LRN [id number]) OP Gait Assessment Gait Gait Assistance Required: Independent Gait Deviations General Gait Pattern Decreased Stride Length, Decreased Feet Clearance, Lateral Trunk Lean Factors Limiting Gait Function Factors Limiting Gait Function Limited Range of Motion,Pain PT-OP-J Posture/Palpation/Skin Start: 10/25/23 19:44 Freq: Status: Active Protocol: Document 11/07/23 18:59 LRN (Rec: 11/07/23 20:35 LRN [id number]) Posture Evaluation Position Standing Head/C-Spine Posture Forward Head L-Spine Posture Flattened Weight Distribution Weight Shifted Right,Decreased Wt.Bear on (L) Hip Posture (L) Externally Rotated Knee Posture (R) Genu Varus Ankle/Foot Posture (R) Pronated,(L) Supinated Palpation Assessment Location L knee Palpation Location Joint line and inferiorly Palpation Findings Edema,Tenderness Palpation Details Tender at Tib/Fib joint with PA/AP mob, and anterior to Tib /Fib joint, tibialis anterior, fib longus (PF), peroneus longus (EV). PT-OP-K Range of Motion Start: 10/25/23 19:44 Freq: Status: Active Protocol: Document 12/19/23 09:10 LRN (Rec: 12/19/23 09:53 LRN [id number]) Knee Goniometric Range of Motion Knee Right Knee ROM WFL Yes Patient Position Supine Flexion Active (degrees) 128 Left Patient Position Supine Flexion Active (degrees) 118 Extension Active (degrees) 7 Comments s/p: Flex 120 deg's, ext 7 deg's. Ankle and Foot Goniometric Range of Motion Ankle and Foot Right Active Testing Position Supine Inversion 15 Eversion 10 PT-OP-M Strength Start: 10/25/23 19:44 Freq: Status: Active Protocol: Document 11/07/23 18:59 LRN (Rec: 11/07/23 20:35 LRN [id number]) Hip Strength Hip Manual Muscle Testing Right Flexion (L2) 4 Good Extension (S1) 3 Fair Comments Hip strength is normal except as indicated above. Left Flexion (L2) 4 Good Extension (S1) 3 Fair Comments Hip strength is normal except as indicated above. Knee Strength Knee Manual Muscle Testing Right Flexion (S2) 5 Normal Extension (L3) 5 Normal Left Flexion (S2) 4 Good Extension (L3) 4 Good Ankle/Foot Strength Ankle and Foot Manual Muscle Testing Right Comments Strength is 5/5 in all muscle groups. Left Dorsiflexion (L4) 4 Good Plantarflexion (S1) 5 Normal Inversion 4 Good Eversion (S1) 4 Good Comments Limited by pain at knee. PT-OP-Q Treatments Start: 10/25/23 19:44 Freq: Status: Active Protocol: Document 12/23/23 09:04 LRN (Rec: 12/23/23 09:29 LRN [id number]) Cardio Equipment Bicycle (Upright) Duration (Minutes) 6 Resistance 5 Seat Position 4 and 7 (3' each) Other BP taken s/p ex: 185/91, HR 75. Therapeutic Exercises Sitting Exercises Deep Breathing Reps/Minutes 5' Comments Cued to breath through lower ribs and hold upper body still . PT-OP-T Assessment and Plan Start: 10/25/23 19:44 Freq: Status: Active Protocol: Document 12/23/23 09:04 LRN (Rec: 12/23/23 09:29 LRN [id number]) Physical Therapy Assessment Goals Three Impairment Decreased L knee & gary ankle mobility (L EV, R IV) Short Term Goal (STG) Pt will be able to manage the edema in her L knee with use of cryotherapy and contrast heat/ice and RICE protocol for pain management. 12/10/23: GOAL MET: pt states uses CP on knee and elevates if needed for swelling mgt. STG Duration 6 wks-12/20/23 GOAL MET Residential Goal (LTG) Improve L knee and gary ankle mobility with pt be able to walk after getting out of car after prolonged sitting (2 hrs ) w/o having to stand 10 secs before moving. 12/10/23: Progressing: pt reports hasn't driven long distances but when gets up from seated in chair for little bit, getting easier, not having to stand still for balance assess. LTG Duration 12 wks-01/31/24 progressing Two Impairment Decreased hip/knee/ankle strength limiting sit<>stand Short Term Goal (STG) Pt will be educated in supportive posturing in a car to reduce pain and edema with travel. STG Duration 6 wks-12/20/23 [employer] Truck Driver Goal (LTG) Improve gary hip/L knee & ankle strength with pt able to sit 2 hrs in a car, then be able to get up out of the car w/o use of her hands. 12/10/23: added clamshell, SAQ, stretching:fig4, HS,prone quad/c strap, standing knee flexion mobility on step. LTG Duration 12 wks-01/31/24 progressing One Impairment Pt lacks and is not independent w/self care HEP. [employer] Truck Driver Goal (LTG) Pt will be independent in an effective self care HEP for core/hip/knee/ankle (L>R) strengthening and mobility ex' s (L knee/ankle/?hip). 12/04/23: prone hip ext, knee flexion, LAQ, STS, rolling pin LE. 12/06/23: TUG 8>7 sec very stable. 12/10/23: added pollo, LADI, fig 4&HS&quad stretch, AAROM knee flexion ROM use chair. LTG Duration 12 wks-01/31/24 progressing Assessment Summary Assessment Pt is a 72 yo female s/p L partial knee arthroplasty () who initially presented with L knee weakness, decreased mobility, R knee/hip pain, antalgic gait, edema & stiffness/pain at L knee after prolonged sitting; therefore decreased walking function after sitting (note: pt reportedly had rehab at [facility] PT with new pain onset on her last day). Today she attends stating her blood pressure was higher than her normal, after warm up pt BP was 185/91; therefore ended therapy after deep breathing, that appeared to relax the pt. Pt had been planning on going to cardiac clinic to make an appt to be seen. Physical Therapy Plan Frequency and Duration Frequency of Treatment 2x/Week Duration of treatment (weeks) 12 Plan of Care Start Date 11/07/23 Plan of Care End Date 01/31/24 Next Visit Focus/Plan Next Note Type Treatment Note Next Visit Plan Monitor BP/AROM pre/post tx. Start upright bike (vs recumbent) for L knee ext, then flex stretching. Review HEP for appropriateness : SAQ, stretching: HS/prone quad w/strap, standing knee flexion mobility /c 2nd step. Next: santos stepping for functional mobility progression. PT POC: stair amb, balance, sensation, L knee & gary ankle AROM, hip/ankle strengthening. JMT L tib/fib. Manual: STM inferior lower leg & mob of Tib/fib jt ROM: Ankle EV left, IV right; continue hip ext, gary knee ext, L knee flex. Strengthening: gary hip ext/ flex, L knee/ankle. Gait/balance training Education: RICE, edema mgmt w /hot-cold, HEP. POC: Therapeutic Ex ( strengthening/ROM), Therapeutic Activity (transfer training), manual therapy ( STM/JMT), Gait & Balance training, Pt Education (HEP, Edema and pain mgmt).
--- NOTE | 2023-12-25 09:48 | PT.OTN ---
Current Diagnoses Pain in right knee (12/25/23) Pain in left knee (12/25/23) Muscle weakness (generalized) (12/25/23) Other abnormalities of gait and mobility (12/25/23) Physical Therapy Treatment Note PT-OP-A Visit Information Start: 10/25/23 19:44 Freq: Status: Active Protocol: Document 12/25/23 09:03 SP (Rec: 12/25/23 09:52 SP [id number]) Out-Patient Physical Therapy Visit Information Visit Information Visit Type Treatment Note Visit Start Time 09:03 Visit Stop Time 09:48 Visit Number 8 Number of TOY DEPARTMENT MANAGER Visits 1 Evaluation Information Evaluation Date 11/07/23 Precautions Precautions Back pain, Osteopenia, HBP semi-controlled w/meds, thyroid disorder. 07/20: L knee xray: Small joint effusion. No suspicious soft tissue calcifications. Stable left knee medial compartment hemiarthroplasty. PT-OP-B Current Condition Start: 10/25/23 19:44 Freq: Status: Active Protocol: Document 11/07/23 18:59 LRN (Rec: 11/07/23 20:35 LRN [id number]) Current Condition History of Current Condition Onset Date 01/2022 Current Complaints Intermittent L knee super & infer to lat jt line pn & ant to tib/fib & jt History of Current Condition Pt is s/p L partial knee arthroplasty, 01/[address] Guerra in [facility]. Pt states she had 7 months of PT at [facility] with good results until the last day of therapy, when she pushed a cart weighing 100#, and ended up twisting at the knee causing onset of knee pain. She reports having 7 ART treatments that she reports helped her get over the initial sharp pains. She reports her pain is now intermittent, noticeably when she twists at the knee resulting in a click deep in the knee and temporary instantaneous pain. She states she does her previous G ex's sometimes, but mainly ex's at a gym 1x/week on an ex bike 45 minutes (3 miles). She reports difficulty standing after sitting in a car, requiring use of her hands to get up out of the car and must stand for ~10 secs before she is able to move and walk. Pt states she was referred to PT. Prior Treatments and Tests [facility] physical therapy for 7 months s/p L partial knee arthroplasty Treatment Goals Patient/Caregiver Goals Pt goal: - be able to sit 2 hrs in a car, then be able to get up out of the car w/o use of her hands - be able to walk after getting out of car after prolonged sitting (2 hrs) w/o having to stand 10 secs before moving. - pt agreeable to being placed on a HEP. Personal Factors Other Personal Factors That May Effect HBP not completely controlled Therapy/Recovery by meds (last taken-131/84), Osteopenia, Hypothyroid (controlled by meds). PT-OP-C Subjective Start: 10/25/23 19:44 Freq: Status: Active Protocol: Document 12/25/23 09:03 SP (Rec: 12/25/23 09:52 SP [id number]) OP-PT Subjective Patient Comments Patient Comments Pt reports feels alot better today. Saw Shuttle Bus Driver last 01/17 with report EKG was normal limits. Tomorrow has an appt for stress test. She reported L BP 151/84 this am. PT-OP-E Functional Tests Start: 10/25/23 19:44 Freq: Status: Active Protocol: Document 12/06/23 09:04 SP (Rec: 12/06/23 09:50 SP [id number]) Functional Tests Timed Up and Go (TUG) Score 8, 7, 7 Comments good stability and pivot turn TUG Impairment Rating 1 to <20% Impaired (Score 11) PT-OP-G Mobility & Gait Start: 10/25/23 19:44 Freq: Status: Active Protocol: Document 11/07/23 18:59 LRN (Rec: 11/07/23 20:35 LRN [id number]) OP Gait Assessment Gait Gait Assistance Required: Independent Gait Deviations General Gait Pattern Decreased Stride Length, Decreased Feet Clearance, Lateral Trunk Lean Factors Limiting Gait Function Factors Limiting Gait Function Limited Range of Motion,Pain PT-OP-J Posture/Palpation/Skin Start: 10/25/23 19:44 Freq: Status: Active Protocol: Document 11/07/23 18:59 LRN (Rec: 11/07/23 20:35 LRN [id number]) Posture Evaluation Position Standing Head/C-Spine Posture Forward Head L-Spine Posture Flattened Weight Distribution Weight Shifted Right,Decreased Wt.Bear on (L) Hip Posture (L) Externally Rotated Knee Posture (R) Genu Varus Ankle/Foot Posture (R) Pronated,(L) Supinated Palpation Assessment Location L knee Palpation Location Joint line and inferiorly Palpation Findings Edema,Tenderness Palpation Details Tender at Tib/Fib joint with PA/AP mob, and anterior to Tib /Fib joint, tibialis anterior, fib longus (PF), peroneus longus (EV). PT-OP-K Range of Motion Start: 10/25/23 19:44 Freq: Status: Active Protocol: Document 12/19/23 09:10 LRN (Rec: 12/19/23 09:53 LRN [id number]) Knee Goniometric Range of Motion Knee Right Knee ROM WFL Yes Patient Position Supine Flexion Active (degrees) 128 Left Patient Position Supine Flexion Active (degrees) 118 Extension Active (degrees) 7 Comments s/p: Flex 120 deg's, ext 7 deg's. Ankle and Foot Goniometric Range of Motion Ankle and Foot Right Active Testing Position Supine Inversion 15 Eversion 10 PT-OP-M Strength Start: 10/25/23 19:44 Freq: Status: Active Protocol: Document 11/07/23 18:59 LRN (Rec: 11/07/23 20:35 LRN [id number]) Hip Strength Hip Manual Muscle Testing Right Flexion (L2) 4 Good Extension (S1) 3 Fair Comments Hip strength is normal except as indicated above. Left Flexion (L2) 4 Good Extension (S1) 3 Fair Comments Hip strength is normal except as indicated above. Knee Strength Knee Manual Muscle Testing Right Flexion (S2) 5 Normal Extension (L3) 5 Normal Left Flexion (S2) 4 Good Extension (L3) 4 Good Ankle/Foot Strength Ankle and Foot Manual Muscle Testing Right Comments Strength is 5/5 in all muscle groups. Left Dorsiflexion (L4) 4 Good Plantarflexion (S1) 5 Normal Inversion 4 Good Eversion (S1) 4 Good Comments Limited by pain at knee. PT-OP-Q Treatments Start: 10/25/23 19:44 Freq: Status: Active Protocol: Document 12/25/23 09:03 SP (Rec: 12/25/23 09:52 SP [id number]) Cardio Equipment Bicycle (Upright) Duration (Minutes) 8 Resistance 5 Seat Position 4 and 7 (3' each) Other L UE BP manual taken s/p ex : 162/85, HR 82 Therapeutic Exercises Supine Exercises SAQ Supine Exercise Name Easy, not tiring challenge. Side left Resistance AROM Equipment Used over foam roller Reps/Minutes 5 SH x15- states feels easy. Comments pnfree, cues for keep thigh on roller, lift foot Prone Exercises Knee flex Prone Exercise Name Knee flex assisted- Side bilateral Equipment Used strap at foot Reps/Minutes 30 SH x2 reps Comments good quad stretch Sitting Exercises LAQ Sitting Exercise Name reviewd HEP Side bilateral Resistance 5# leg wt Reps/Minutes 3 Sh x10 Comments good quad tiring Standing Exercises glut med wall Standing Exercise Name added to HEP Side bilateral Reps/Minutes 3 reps Comments cued set up, good hip abd tiring. Step ups Standing Exercise Name fwd/bwd/lateral Side bilateral Equipment Used (SPC support due to no rail home enterance) Reps/Minutes 10x each Comments Cued to control descent of body with RLE Lowering- lateral tendon rolling knee mobility Standing Exercise Name REviewed past Side left Resistance AAROM Equipment Used rail support, ft 2nd step Reps/Minutes x10 Comments cues knee over toes, pnfree range PT-OP-T Assessment and Plan Start: 10/25/23 19:44 Freq: Status: Active Protocol: Document 12/25/23 09:03 SP (Rec: 12/25/23 09:52 SP [id number]) Physical Therapy Assessment Goals Three Impairment Decreased L knee & gary ankle mobility (L EV, R IV) Short Term Goal (STG) Pt will be able to manage the edema in her L knee with use of cryotherapy and contrast heat/ice and RICE protocol for pain management. 12/10/23: GOAL MET: pt states uses CP on knee and elevates if needed for swelling mgt. STG Duration 6 wks-12/20/23 GOAL MET Usp Goal (LTG) Improve L knee and gary ankle mobility with pt be able to walk after getting out of car after prolonged sitting (2 hrs ) w/o having to stand 10 secs before moving. 12/10/23: Progressing: pt reports hasn't driven long distances but when gets up from seated in chair for little bit, getting easier, not having to stand still for balance assess. LTG Duration 12 wks-01/31/24 progressing Two Impairment Decreased hip/knee/ankle strength limiting sit<>stand Short Term Goal (STG) Pt will be educated in supportive posturing in a car to reduce pain and edema with travel. STG Duration 6 wks-12/20/23 Co Teacher Goal (LTG) Improve gary hip/L knee & ankle strength with pt able to sit 2 hrs in a car, then be able to get up out of the car w/o use of her hands. 12/10/23: added clamshell, SAQ, stretching:fig4, HS,prone quad/c strap, standing knee flexion mobility on step. LTG Duration 12 wks-01/31/24 progressing One Impairment Pt lacks and is not independent w/self care HEP. Usp Goal (LTG) Pt will be independent in an effective self care HEP for core/hip/knee/ankle (L>R) strengthening and mobility ex' s (L knee/ankle/?hip). 12/04/23: prone hip ext, knee flexion, LAQ, STS, rolling pin LE. 12/06/23: TUG 8>7 sec very stable. 12/10/23: added clamshell, SAQ, fig 4&HS&quad stretch, AAROM knee flexion ROM use chair. 12/25/23: added glut med wall, LAQ increased resistance 5# leg wt. LTG Duration 12 wks-01/31/24 progressing Assessment Summary Assessment Pt tolerated session well. Good response to progressed resisted wt 5 lb LAQ, improved knee mobility with instruction foot on 2nd step flex/ext and prone flexion/c strap, added to glut med at wall and step ups use SPC for self support home carryover ( no HR home) with tiring effort to progress strength not painful. Physical Therapy Plan Frequency and Duration Frequency of Treatment 2x/Week Duration of treatment (weeks) 12 Plan of Care Start Date 11/07/23 Plan of Care End Date 01/31/24 Therapeutic Interventions Therapeutic Interventions Home Exercise Program,Manual Therapy,Neuromuscular Re- education,Self-Care/Home Management,Soft Tissue Mobilization,Taping, Therapeutic Activities, Therapeutic Exercises Modalities Cold Pack/Ice Massage,Hot Packs Other Therapeutic Interventions Tib/fib joint mobiliation. Next Visit Focus/Plan Next Note Type Treatment Note Next Visit Plan Monitor BP/AROM pre/post tx. Start upright bike (vs recumbent) for L knee ext, then flex stretching. Review HEP for appropriateness : SAQ, stretching: HS/prone quad w/strap, standing knee flexion mobility /c 2nd step, glut med wall. Next: santos stepping for functional mobility progression. PT POC: stair amb, balance, sensation, L knee & gary ankle AROM, hip/ankle strengthening. JMT L tib/fib. Manual: STM inferior lower leg & mob of Tib/fib jt ROM: Ankle EV left, IV right; continue hip ext, gary knee ext, L knee flex. Strengthening: gary hip ext/ flex, L knee/ankle. Gait/balance training Education: RICE, edema mgmt w /hot-cold, HEP. POC: Therapeutic Ex ( strengthening/ROM), Therapeutic Activity (transfer training), manual therapy ( STM/JMT), Gait & Balance training, Pt Education (HEP, Edema and pain mgmt).
--- NOTE | 2023-12-31 14:13 | PT.OTN ---
Current Diagnoses Pain in right knee (12/31/23) Pain in left knee (12/31/23) Muscle weakness (generalized) (12/31/23) Other abnormalities of gait and mobility (12/31/23) Physical Therapy Treatment Note PT-OP-A Visit Information Start: 10/25/23 19:44 Freq: Status: Active Protocol: Document 12/31/23 09:08 LRN (Rec: 12/31/23 09:06 LRN [id number]) Out-Patient Physical Therapy Visit Information Visit Information Visit Type Progress Note Visit Start Time 09:08 Visit Stop Time 09:53 Visit Number 9 Evaluation Information Evaluation Date 11/07/23 Precautions Precautions Back pain, Osteopenia, HBP semi-controlled w/meds, thyroid disorder. 07/20: L knee xray: Small joint effusion. No suspicious soft tissue calcifications. Stable left knee medial compartment hemiarthroplasty. PT-OP-B Current Condition Start: 10/25/23 19:44 Freq: Status: Active Protocol: Document 11/07/23 18:59 LRN (Rec: 11/07/23 20:35 LRN [id number]) Current Condition History of Current Condition Onset Date 01/2022 Current Complaints Intermittent L knee super & infer to lat jt line pn & ant to tib/fib & jt History of Current Condition Pt is s/p L partial knee arthroplasty, 01/[address] Guerra in [facility]. Pt states she had 7 months of PT at [facility] Physical Therapy with good results until the last day of therapy, when she pushed a cart weighing 100#, and ended up twisting at the knee causing onset of knee pain. She reports having 7 ART treatments that she reports helped her get over the initial sharp pains. She reports her pain is now intermittent, noticeably when she twists at the knee resulting in a click deep in the knee and temporary instantaneous pain. She states she does her previous IRG ex's sometimes, but mainly ex's at a gym 1x/week on an ex bike 45 minutes (3 miles). She reports difficulty standing after sitting in a car, requiring use of her hands to get up out of the car and must stand for ~10 secs before she is able to move and walk. Pt states she was referred to PT. Prior Treatments and Tests [facility] physical therapy for 7 months s/p L partial knee arthroplasty Treatment Goals Patient/Caregiver Goals Pt goal: - be able to sit 2 hrs in a car, then be able to get up out of the car w/o use of her hands - be able to walk after getting out of car after prolonged sitting (2 hrs) w/o having to stand 10 secs before moving. - pt agreeable to being placed on a HEP. Personal Factors Other Personal Factors That May Effect HBP not completely controlled Therapy/Recovery by meds (last taken-131), Osteopenia, Hypothyroid (controlled by meds). PT-OP-C Subjective Start: 10/25/23 19:44 Freq: Status: Active Protocol: Document 12/31/23 09:08 LRN (Rec: 12/31/23 09:06 LRN [id number]) OP-PT Subjective Patient Comments Patient Comments States she is very sore from doing so much walking this . PT-OP-E Functional Tests Start: 10/25/23 19:44 Freq: Status: Active Protocol: Document 12/06/23 09:04 SP (Rec: 12/06/23 09:50 SP [id number]) Functional Tests Timed Up and Go (TUG) Score 8, 7, 7 Comments good stability and pivot turn TUG Impairment Rating 1 to <20% Impaired (Score 11) PT-OP-G Mobility & Gait Start: 10/25/23 19:44 Freq: Status: Active Protocol: Document 11/07/23 18:59 LRN (Rec: 11/07/23 20:35 LRN [id number]) OP Gait Assessment Gait Gait Assistance Required: Independent Gait Deviations General Gait Pattern Decreased Stride Length, Decreased Feet Clearance, Lateral Trunk Lean Factors Limiting Gait Function Factors Limiting Gait Function Limited Range of Motion,Pain PT-OP-J Posture/Palpation/Skin Start: 10/25/23 19:44 Freq: Status: Active Protocol: Document 11/07/23 18:59 LRN (Rec: 11/07/23 20:35 LRN [id number]) Posture Evaluation Position Standing Head/C-Spine Posture Forward Head L-Spine Posture Flattened Weight Distribution Weight Shifted Right,Decreased Wt.Bear on (L) Hip Posture (L) Externally Rotated Knee Posture (R) Genu Varus Ankle/Foot Posture (R) Pronated,(L) Supinated Palpation Assessment Location L knee Palpation Location Joint line and inferiorly Palpation Findings Edema,Tenderness Palpation Details Tender at Tib/Fib joint with PA/AP mob, and anterior to Tib /Fib joint, tibialis anterior, fib longus (PF), peroneus longus (EV). PT-OP-K Range of Motion Start: 10/25/23 19:44 Freq: Status: Active Protocol: Document 12/31/23 09:08 LRN (Rec: 12/31/23 09:37 LRN [id number]) Knee Goniometric Range of Motion Knee Left Patient Position Supine Flexion Active (degrees) 118 Extension Active (degrees) 7 Comments s/p: Flex 120 deg's, ext 7 deg's. Sittin-115 PT-OP-M Strength Start: 10/25/23 19:44 Freq: Status: Active Protocol: Document 11/07/23 18:59 LRN (Rec: 11/07/23 20:35 LRN [id number]) Hip Strength Hip Manual Muscle Testing Right Flexion (L2) 4 Good Extension (S1) 3 Fair Comments Hip strength is normal except as indicated above. Left Flexion (L2) 4 Good Extension (S1) 3 Fair Comments Hip strength is normal except as indicated above. Knee Strength Knee Manual Muscle Testing Right Flexion (S2) 5 Normal Extension (L3) 5 Normal Left Flexion (S2) 4 Good Extension (L3) 4 Good Ankle/Foot Strength Ankle and Foot Manual Muscle Testing Right Comments Strength is 5/5 in all muscle groups. Left Dorsiflexion (L4) 4 Good Plantarflexion (S1) 5 Normal Inversion 4 Good Eversion (S1) 4 Good Comments Limited by pain at knee. PT-OP-Q Treatments Start: 10/25/23 19:44 Freq: Status: Active Protocol: Document 12/31/23 09:08 LRN (Rec: 12/31/23 09:37 LRN [id number]) Cardio Equipment Bicycle (Upright) Duration (Minutes) 7 Resistance 5 Seat Position Hgt 4 & 7 Therapeutic Exercises Supine Exercises stretching Supine Exercise Name Knee ext>flex stretch: Active and passive. Side left Equipment Used Ext stretch-2#above the knee, towel wedge at hip (to limit hip ER). Reps/Minutes 32' Comments PROM taken Sitting Exercises LAQ Side left Reps/Minutes 3 SH x 5 Comments ROM taken Self-Care/Home Management Treatment Activities Self-Care/Home Management Activities I/S pt in low intensity, long duration stretch into knee extension in supine (1/2# or light book) f/b active QS. Discussed how lightweight is better than heavy and advised not to use anything heavy for long duration stretch. PT-OP-T Assessment and Plan Start: 10/25/23 19:44 Freq: Status: Active Protocol: Document 12/31/23 09:08 LRN (Rec: 12/31/23 09:06 LRN [id number]) Physical Therapy Assessment Rehab Potential Rehabilitation Potential Fair Evaluation Complexity Number of Personal Factors/Comorbidities 3 or More Number of Body Systems Impaired 4 or More Clinical Presentation at Evaluation Evolving Impairments Impairments Activity Tolerance,Edema,Gait, Pain,Posture,ROM,Soft Tissue Mobility,Strength,Transfers Goals Three Impairment Decreased L knee & gary ankle mobility (L EV, R IV) Short Term Goal (STG) Pt will be able to manage the edema in her L knee with use of cryotherapy and contrast heat/ice and RICE protocol for pain management. 12/10/23: GOAL MET: pt states uses CP on knee and elevates if needed for swelling mgt. STG Duration 6 wks-12/20/23 GOAL MET [employer]ist Goal (LTG) Improve L knee and gary ankle mobility with pt be able to walk after getting out of car after prolonged sitting (2 hrs ) w/o having to stand 10 secs before moving. 12/10/23: Progressing: pt reports hasn't driven long distances but when gets up from seated in chair for little bit, getting easier, not having to stand still for balance assess. 12/31/23: Supine L knee AROM: 7-115 deg's; Sitting L knee AROM: LTG Duration 12 wks-01/31/24 progressing 12/10/23 Two Impairment Decreased hip/knee/ankle strength limiting sit<>stand Short Term Goal (STG) Pt will be educated in supportive posturing in a car to reduce pain and edema with travel. 12/31/23: Briefly discussed use of LB support for long car rides to reduce possible onset of L knee pain. STG Duration 6 wks-12/20/23 progressed (need educat of sitting posture in car Residential Goal (LTG) Improve gary hip/L knee & ankle strength with pt able to sit 2 hrs in a car, then be able to get up out of the car w/o use of her hands. 12/10/23: added clamshell, SAQ, stretching:fig4, HS,prone quad/c strap, standing knee flexion mobility on step. LTG Duration 12 wks-01/31/24 progressing 12/10/23 One Impairment Pt lacks and is not independent w/self care HEP. Residential Goal (LTG) Pt will be independent in an effective self care HEP for core/hip/knee/ankle (L>R) strengthening and mobility ex' s (L knee/ankle/?hip). 12/04/23: prone hip ext, knee flexion, LAQ, STS, rolling pin LE. 12/06/23: TUG 8>7 sec very stable. 12/10/23: added clamshell, SAQ, fig 4&HS&quad stretch, AAROM knee flexion ROM use chair. 12/25/23: added glut med wall, LAQ increased resistance 5# leg wt. 12/31/23: I/S pt in light wgt above L knee for long duration, low intensity stretch f/b active QS. LTG Duration 12 wks-01/31/24 progressing 12/31/23 Assessment Summary Assessment Pt is a 72 yo female s/p L partial knee arthroplasty () who initially presented with L knee weakness, decreased mobility, R knee/hip pain, antalgic gait, edema & stiffness/pain and walking dysfunction at L knee after prolonged sitting. Pt had her partial TKA rehab at [facility] Physical therapy with new pain onset on her last day. Today, the pt attends stating she is sore all over due to doing so much walking over the holiday weekend. Her L knee active flexion mobility and general strength has improved, except knee extension measures the same as initially , but the pt is more stiff and sore today and previously had shown improvement. The pt can benefit from further physical therapy to improve her knee mobility, ankle mobility, knee/ankle hip strength, gait/balance training, and sitting posture education to minimize pain with prolonged sitting. Physical Therapy Plan Frequency and Duration Frequency of Treatment 2x/Week Duration of treatment (weeks) 12 Plan of Care Start Date 11/07/23 Plan of Care End Date 01/31/24 Therapeutic Interventions Therapeutic Interventions Gait Training,Home Exercise Program,Joint Mobilizations, Manual Therapy,Neuromuscular Re-education,Self-Care/Home Management,Soft Tissue Mobilization,Therapeutic Activities,Therapeutic Exercises Modalities Cold Pack/Ice Massage Other Therapeutic Interventions Possible use of K-tape. Next Visit Focus/Plan Next Note Type Treatment Note Next Visit Plan Pt leaving last week in Dec and month of January; therefore probable DC to HEP in 2 wks. Monitor BP/L knee AROM-pre/post tx. Start upright bike (vs recumbent) for L knee ext, then flex/ext stretching. Review HEP for appropriateness: SAQ, stretching: HS/prone quad w/ strap, standing knee flexion mobility /c 2nd step, glut med wall. Try: Shuttle for VMO strengthening to improve knee ext ROM; knee flexion w/gentle LB traction; Ankle EV left, IV right ROM ex & strengthening of L ankle/gary hip ext/knee CKC strengthening ; Functional Mobility progression: santos stepping. Manual: STM mob of Tib/fib jt Pt Education (HEP, edema mgmt w/hot-cold). Gait/balance training POC: Therapeutic Ex (L knee/ ankle ROM) & hip/ankle strengthening, Therapeutic Activity (car sitting posture training, manual therapy (JMT L tib/fib), Stair amb, Balance training, Manual therapy, Pt Education.
--- NOTE | 2024-01-02 09:50 | PT.OTN ---
Current Diagnoses Pain in right knee (01/02/24) Pain in left knee (01/02/24) Muscle weakness (generalized) (01/02/24) Other abnormalities of gait and mobility (01/02/24) Physical Therapy Treatment Note PT-OP-A Visit Information Start: 10/25/23 19:44 Freq: Status: Active Protocol: Document 01/02/24 08:59 SP (Rec: 01/02/24 10:32 SP [id number]) Out-Patient Physical Therapy Visit Information Visit Information Visit Type Treatment Note Visit Note 06/08 post PN Visit Start Time 09:00 Visit Stop Time 09:50 Visit Number 10 Number of LEGISLATORS Visits 1 Evaluation Information Evaluation Date 11/07/23 Precautions Precautions Back pain, Osteopenia, HBP semi-controlled w/meds, thyroid disorder. 07/20: L knee xray: Small joint effusion. No suspicious soft tissue calcifications. Stable left knee medial compartment hemiarthroplasty. PT-OP-B Current Condition Start: 10/25/23 19:44 Freq: Status: Active Protocol: Document 11/07/23 18:59 LRN (Rec: 11/07/23 20:35 LRN [id number]) Current Condition History of Current Condition Onset Date 01/2022 Current Complaints Intermittent L knee super & infer to lat jt line pn & ant to tib/fib & jt History of Current Condition Pt is s/p L partial knee arthroplasty, 01/[address] Guerra in [facility]. Pt states she had 7 months of PT at [facility] Physical Therapy with good results until the last day of therapy, when she pushed a cart weighing 100#, and ended up twisting at the knee causing onset of knee pain. She reports having 7 ART treatments that she reports helped her get over the initial sharp pains. She reports her pain is now intermittent, noticeably when she twists at the knee resulting in a click deep in the knee and temporary instantaneous pain. She states she does her previous [facility] ex's sometimes, but mainly ex's at a gym 1x/week on an ex bike 45 minutes (3 miles). She reports difficulty standing after sitting in a car, requiring use of her hands to get up out of the car and must stand for ~10 secs before she is able to move and walk. Pt states she was referred to PT. Prior Treatments and Tests [facility] physical therapy for 7 months s/p L partial knee arthroplasty Treatment Goals Patient/Caregiver Goals Pt goal: - be able to sit 2 hrs in a car, then be able to get up out of the car w/o use of her hands - be able to walk after getting out of car after prolonged sitting (2 hrs) w/o having to stand 10 secs before moving. - pt agreeable to being placed on a HEP. Personal Factors Other Personal Factors That May Effect HBP not completely controlled Therapy/Recovery by meds (last taken-131/84), Osteopenia, Hypothyroid (controlled by meds). PT-OP-C Subjective Start: 10/25/23 19:44 Freq: Status: Active Protocol: Document 01/02/24 08:59 SP (Rec: 01/02/24 10:32 SP [id number]) OP-PT Subjective Patient Comments Patient Comments Pt reports she is compliant with HEP and not seeing a significant improvement in ROM of her R knee. She is being followed by chocolate production machine operator for her elevated BP. She woke up one day this week and noted swelling in her hands and feet , new. She thinks her lack of R knee ROM is affected by the swelling. Pt report her friends mentioned her flexed posture and low back arch which LEGISLATORS notes at arrival as well. PT-OP-E Functional Tests Start: 10/25/23 19:44 Freq: Status: Active Protocol: Document 12/06/23 09:04 SP (Rec: 12/06/23 09:50 SP [id number]) Functional Tests Timed Up and Go (TUG) Score 8, 7, 7 Comments good stability and pivot turn TUG Impairment Rating 1 to <20% Impaired (Score 11) PT-OP-G Mobility & Gait Start: 10/25/23 19:44 Freq: Status: Active Protocol: Document 11/07/23 18:59 LRN (Rec: 11/07/23 20:35 LRN [id number]) OP Gait Assessment Gait Gait Assistance Required: Independent Gait Deviations General Gait Pattern Decreased Stride Length, Decreased Feet Clearance, Lateral Trunk Lean Factors Limiting Gait Function Factors Limiting Gait Function Limited Range of Motion,Pain PT-OP-J Posture/Palpation/Skin Start: 10/25/23 19:44 Freq: Status: Active Protocol: Document 11/07/23 18:59 LRN (Rec: 11/07/23 20:35 LRN [id number]) Posture Evaluation Position Standing Head/C-Spine Posture Forward Head L-Spine Posture Flattened Weight Distribution Weight Shifted Right,Decreased Wt.Bear on (L) Hip Posture (L) Externally Rotated Knee Posture (R) Genu Varus Ankle/Foot Posture (R) Pronated,(L) Supinated Palpation Assessment Location L knee Palpation Location Joint line and inferiorly Palpation Findings Edema,Tenderness Palpation Details Tender at Tib/Fib joint with PA/AP mob, and anterior to Tib /Fib joint, tibialis anterior, fib longus (PF), peroneus longus (EV). PT-OP-K Range of Motion Start: 10/25/23 19:44 Freq: Status: Active Protocol: Document 12/31/23 09:08 LRN (Rec: 12/31/23 09:37 LRN [id number]) Knee Goniometric Range of Motion Knee Left Patient Position Supine Flexion Active (degrees) 118 Extension Active (degrees) 7 Comments s/p: Flex 120 deg's, ext 7 deg's. Sittin-115 PT-OP-M Strength Start: 10/25/23 19:44 Freq: Status: Active Protocol: Document 11/07/23 18:59 LRN (Rec: 11/07/23 20:35 LRN [id number]) Hip Strength Hip Manual Muscle Testing Right Flexion (L2) 4 Good Extension (S1) 3 Fair Comments Hip strength is normal except as indicated above. Left Flexion (L2) 4 Good Extension (S1) 3 Fair Comments Hip strength is normal except as indicated above. Knee Strength Knee Manual Muscle Testing Right Flexion (S2) 5 Normal Extension (L3) 5 Normal Left Flexion (S2) 4 Good Extension (L3) 4 Good Ankle/Foot Strength Ankle and Foot Manual Muscle Testing Right Comments Strength is 5/5 in all muscle groups. Left Dorsiflexion (L4) 4 Good Plantarflexion (S1) 5 Normal Inversion 4 Good Eversion (S1) 4 Good Comments Limited by pain at knee. PT-OP-Q Treatments Start: 10/25/23 19:44 Freq: Status: Active Protocol: Document 01/02/24 08:59 SP (Rec: 01/02/24 10:32 SP [id number]) Cardio Equipment Bicycle (Upright) Duration (Minutes) 10 Resistance 5 Seat Position Hgt 7>4 Gym Equipment Shuttle Recovery unilateral squat Details allowing full range tolerated: 118 deg L knee Resistance 25# (1 navy band) Reps/Time x5 pause end feel bilateral squat Details allowing full range tolerated: 118>120 deg L knee Resistance 50# ( 2 navy bands) Reps/Time 10 reps pause stretch end feel range: tolerated at end feel Therapeutic Exercises Supine Exercises Luis stretch Supine Exercise Name trailed in PT- added to HEP /c HO Side bilateral Resistance R>L tightness Equipment Used opp KTC Reps/Minutes 20 SH Comments cued TA no LB arch, breath bridging Supine Exercise Name trialed in PT for knee flexion and active hip ext Side bilateral Resistance AROM Equipment Used added to HEP /c HO Reps/Minutes 5 x2 Comments good feedback painfree to back /hip/knees Prone Exercises Knee flex Prone Exercise Name Knee flex assisted- added to Hep /c HO Side bilateral Equipment Used strap at foot, pillow under pelvis Reps/Minutes 20 SH x2 reps Comments good quad stretch but strain on LB, decrease /c TA fac & pillow Standing Exercises knee mobility Standing Exercise Name 110deg Side left Resistance AAROM Equipment Used rail support, ft 2nd step Reps/Minutes x10 Comments cues knee over toes, pnfree range Manual Therapy Treatment Soft Tissue Mobilization L Quads Body Location L>R RF, TFL, adductor- Mobilization Type Myofascial Release,Rolling Intensity/Depth Moderate Body Position Supine Comments very sensitive to pressure - R leg straight and lower leg off table (opp LE knee bent/ foot on table) L leg Body Location Hamstring, calf, ITB Mobilization Type Myofascial Release,Rolling Intensity/Depth Moderate Body Position Prone over pillow Comments very sensitive to pressure, adjustments in light gentle pressure. Discussed use of rolling pin seated to quad, HS , calf home for carryover reduction in tightness (not performed) . Joint Mobilizations L knee Joint tibon femur flex hooklying, femur on tib prone flexion Reps/Duration use strap Comments decreased tension within knee reported Prone 110 deg, hooklying 116 deg patellar mob Joint L Direction med/lat/sup/inf Comments very tight medial and sup/inf PT-OP-T Assessment and Plan Start: 10/25/23 19:44 Freq: Status: Active Protocol: Document 01/02/24 08:59 SP (Rec: 01/02/24 10:32 SP [id number]) Physical Therapy Assessment Goals Three Impairment Decreased L knee & gary ankle mobility (L EV, R IV) Short Term Goal (STG) Pt will be able to manage the edema in her L knee with use of cryotherapy and contrast heat/ice and RICE protocol for pain management. 12/10/23: GOAL MET: pt states uses CP on knee and elevates if needed for swelling mgt. STG Duration 6 wks-12/20/23 GOAL MET Senior Principal Architect Goal (LTG) Improve L knee and gary ankle mobility with pt be able to walk after getting out of car after prolonged sitting (2 hrs ) w/o having to stand 10 secs before moving. 12/10/23: Progressing: pt reports hasn't driven long distances but when gets up from seated in chair for little bit, getting easier, not having to stand still for balance assess. 12/31/23: Supine L knee AROM: 7-115 deg's; Sitting L knee AROM: LTG Duration 12 wks-01/31/24 progressing 12/10/23 Two Impairment Decreased hip/knee/ankle strength limiting sit<>stand Short Term Goal (STG) Pt will be educated in supportive posturing in a car to reduce pain and edema with travel. 12/31/23: Briefly discussed use of LB support for long car rides to reduce possible onset of L knee pain. STG Duration 6 wks-12/20/23 progressed (need educat of sitting posture in car Senior Principal Architect Goal (LTG) Improve gary hip/L knee & ankle strength with pt able to sit 2 hrs in a car, then be able to get up out of the car w/o use of her hands. 12/10/23: added clamshell, SAQ, stretching:fig4, HS,prone quad/c strap, standing knee flexion mobility on step. LTG Duration 12 wks-01/31/24 progressing 12/10/23 One Impairment Pt lacks and is not independent w/self care HEP. Jail Goal (LTG) Pt will be independent in an effective self care HEP for core/hip/knee/ankle (L>R) strengthening and mobility ex' s (L knee/ankle/?hip). 12/04/23: prone hip ext, knee flexion, LAQ, STS, rolling pin LE. 12/06/23: TUG 8>7 sec very stable. 12/10/23: added clasebastianl, SAQ, fig 4&HS&quad stretch, AAROM knee flexion ROM use chair. 12/25/23: added glut med wall, LAQ increased resistance 5# leg wt. 12/31/23: I/S pt in light wgt above L knee for long duration, low intensity stretch f/b active QS. LTG Duration 12 wks-01/31/24 progressing 12/31/23 Assessment Summary Assessment Pt reports good quad stretch in prone /c strap cuing for pillow under pelvis and TA/ Low back neutral. Trialed Luis stretch lower leg off table with noted slight knee ( tight quad and hip flexors R>L ), cues for TA and no LB arch /c breath to allow ease of hip extension and knee flexion, no adverse affects reported suprised how tight I am. No significant improvement in R knee flexion during post manual and trial of leg press resistance assist. Physical Therapy Plan Frequency and Duration Frequency of Treatment 2x/Week Duration of treatment (weeks) 12 Plan of Care Start Date 11/07/23 Plan of Care End Date 01/31/24 Therapeutic Interventions Therapeutic Interventions Gait Training,Home Exercise Program,Joint Mobilizations, Manual Therapy,Neuromuscular Re-education,Self-Care/Home Management,Soft Tissue Mobilization,Therapeutic Activities,Therapeutic Exercises Modalities Cold Pack/Ice Massage Other Therapeutic Interventions Possible use of K-tape. Next Visit Focus/Plan Next Note Type Treatment Note Next Visit Plan Next tx: assess hip flexor tightness/ hip ROM and ankle mobility. *Pt leaving last week in Dec and month of January; therefore probable DC to HEP in 2 wks.* Monitor BP*/L knee AROM-pre/post tx. Start upright bike (vs recumbent) for L knee ext, then flex/ext stretching. Review HEP for appropriateness: SAQ, stretching: HS/prone quad w/ strap pillow under pelvis, standing knee flexion mobility /c 2nd step, glut med wall. Try: Shuttle for VMO strengthening to improve knee ext ROM; knee flexion w/gentle LB traction; Ankle EV left, IV right ROM ex & strengthening of L ankle/gary hip ext/knee CKC strengthening ; Functional Mobility progression: santos stepping. Manual: STM mob of Tib/fib jt Pt Education (HEP, edema mgmt w/hot-cold). Gait/balance training POC: Therapeutic Ex (L knee/ ankle ROM) & hip/ankle strengthening, Therapeutic Activity (car sitting posture training, manual therapy (JMT L tib/fib), Stair amb, Balance training, Manual therapy, Pt Education.
--- NOTE | 2024-01-07 12:16 | PT.OTN ---
Current Diagnoses Pain in right knee (01/07/24) Pain in left knee (01/07/24) Muscle weakness (generalized) (01/07/24) Other abnormalities of gait and mobility (01/07/24) Physical Therapy Treatment Note PT-OP-A Visit Information Start: 10/25/23 19:44 Freq: Status: Active Protocol: Document 01/07/24 08:05 AB (Rec: 01/07/24 12:15 AB [id number]) Out-Patient Physical Therapy Visit Information Visit Information Visit Type Treatment Note Visit Note 07/06 post PN Visit Start Time 09:01 Visit Stop Time 09:47 Visit Number 11 Number of DIRECTOR GRAPHICS Visits 2 Evaluation Information Evaluation Date 11/07/23 Precautions Precautions Back pain, Osteopenia, HBP semi-controlled w/meds, thyroid disorder. 07/20: L knee xray: Small joint effusion. No suspicious soft tissue calcifications. Stable left knee medial compartment hemiarthroplasty. PT-OP-B Current Condition Start: 10/25/23 19:44 Freq: Status: Active Protocol: Document 11/07/23 18:59 LRN (Rec: 11/07/23 20:35 LRN [id number]) Current Condition History of Current Condition Onset Date 01/2022 Current Complaints Intermittent L knee super & infer to lat jt line pn & ant to tib/fib & jt History of Current Condition Pt is s/p L partial knee arthroplasty, 01/[address] Guerra in [facility]. Pt states she had 7 months of PT at [facility] Physical Therapy with good results until the last day of therapy, when she pushed a cart weighing 100#, and ended up twisting at the knee causing onset of knee pain. She reports having 7 ART treatments that she reports helped her get over the initial sharp pains. She reports her pain is now intermittent, noticeably when she twists at the knee resulting in a click deep in the knee and temporary instantaneous pain. She states she does her previous [facility] ex's sometimes, but mainly ex's at a gym 1x/week on an ex bike 45 minutes (3 miles). She reports difficulty standing after sitting in a car, requiring use of her hands to get up out of the car and must stand for ~10 secs before she is able to move and walk. Pt states she was referred to PT. Prior Treatments and Tests [facility] physical therapy for 7 months s/p L partial knee arthroplasty Treatment Goals Patient/Caregiver Goals Pt goal: - be able to sit 2 hrs in a car, then be able to get up out of the car w/o use of her hands - be able to walk after getting out of car after prolonged sitting (2 hrs) w/o having to stand 10 secs before moving. - pt agreeable to being placed on a HEP. Personal Factors Other Personal Factors That May Effect HBP not completely controlled Therapy/Recovery by meds (last taken-131/), Osteopenia, Hypothyroid (controlled by meds). PT-OP-C Subjective Start: 10/25/23 19:44 Freq: Status: Active Protocol: Document 01/07/24 08:05 AB (Rec: 01/07/24 12:15 AB [id number]) OP-PT Subjective Patient Comments Patient Comments Patient reports she is a bit better, which helps her movement. Patient reports she is still not confident going up and down stairs. Seated left UE 143/77 HR 70. AROM lacking 9 deg ext to 116 flexion AROM left knee. left hip with increased stiffness ie PROM to neutral. Left knee extended when in modified Luis stretch position. PT-OP-E Functional Tests Start: 10/25/23 19:44 Freq: Status: Active Protocol: Document 12/06/23 09:04 SP (Rec: 12/06/23 09:50 SP [id number]) Functional Tests Timed Up and Go (TUG) Score 8, 7, 7 Comments good stability and pivot turn TUG Impairment Rating 1 to <20% Impaired (Score 11) PT-OP-G Mobility & Gait Start: 10/25/23 19:44 Freq: Status: Active Protocol: Document 11/07/23 18:59 LRN (Rec: 11/07/23 20:35 LRN [id number]) OP Gait Assessment Gait Gait Assistance Required: Independent Gait Deviations General Gait Pattern Decreased Stride Length, Decreased Feet Clearance, Lateral Trunk Lean Factors Limiting Gait Function Factors Limiting Gait Function Limited Range of Motion,Pain PT-OP-J Posture/Palpation/Skin Start: 10/25/23 19:44 Freq: Status: Active Protocol: Document 11/07/23 18:59 LRN (Rec: 11/07/23 20:35 LRN [id number]) Posture Evaluation Position Standing Head/C-Spine Posture Forward Head L-Spine Posture Flattened Weight Distribution Weight Shifted Right,Decreased Wt.Bear on (L) Hip Posture (L) Externally Rotated Knee Posture (R) Genu Varus Ankle/Foot Posture (R) Pronated,(L) Supinated Palpation Assessment Location L knee Palpation Location Joint line and inferiorly Palpation Findings Edema,Tenderness Palpation Details Tender at Tib/Fib joint with PA/AP mob, and anterior to Tib /Fib joint, tibialis anterior, fib longus (PF), peroneus longus (EV). PT-OP-K Range of Motion Start: 10/25/23 19:44 Freq: Status: Active Protocol: Document 12/31/23 09:08 LRN (Rec: 12/31/23 09:37 LRN [id number]) Knee Goniometric Range of Motion Knee Left Patient Position Supine Flexion Active (degrees) 118 Extension Active (degrees) 7 Comments s/p: Flex 120 deg's, ext 7 deg's. Sittin-115 PT-OP-M Strength Start: 10/25/23 19:44 Freq: Status: Active Protocol: Document 11/07/23 18:59 LRN (Rec: 11/07/23 20:35 LRN [id number]) Hip Strength Hip Manual Muscle Testing Right Flexion (L2) 4 Good Extension (S1) 3 Fair Comments Hip strength is normal except as indicated above. Left Flexion (L2) 4 Good Extension (S1) 3 Fair Comments Hip strength is normal except as indicated above. Knee Strength Knee Manual Muscle Testing Right Flexion (S2) 5 Normal Extension (L3) 5 Normal Left Flexion (S2) 4 Good Extension (L3) 4 Good Ankle/Foot Strength Ankle and Foot Manual Muscle Testing Right Comments Strength is 5/5 in all muscle groups. Left Dorsiflexion (L4) 4 Good Plantarflexion (S1) 5 Normal Inversion 4 Good Eversion (S1) 4 Good Comments Limited by pain at knee. PT-OP-Q Treatments Start: 10/25/23 19:44 Freq: Status: Active Protocol: Document 01/07/24 08:05 AB (Rec: 01/07/24 12:15 AB [id number]) Cardio Equipment Bicycle (Upright) Duration (Minutes) 7 Resistance 5 Seat Position Hgt 7>4 Therapeutic Exercises Supine Exercises Luis stretch Side left Equipment Used opp KTC Reps/Minutes 20-35 seconds X 2 Comments with AROM knee flexion X 2-4 L knee AROM Supine Exercise Name Hamstring stretch Side bilateral Reps/Minutes 60 sec X 2 each side SAQ Supine Exercise Name HEP review Side bilateral Resistance AROM Equipment Used over foam roller Reps/Minutes X10 Prone Exercises Knee flex Prone Exercise Name 1. quad stretch with strap, 2. AROM knee flexion Side bilateral Equipment Used strap at foot, pillow under pelvis Reps/Minutes 1. 60 sec X 2 2. X10 Hip Ext Prone Exercise Name HEP reviewed Side bilateral Resistance AROM Reps/Minutes 5 Sidelying Exercises clamshell Side bilateral Resistance level one band Reps/Minutes bilateral Sitting Exercises LAQ Side bilateral Resistance level one band Reps/Minutes X10 Standing Exercises sit to stand Side bilateral Reps/Minutes X10 Comments monitored for pain knee mobility Standing Exercise Name with towel roll Side bilateral Equipment Used with UE support Reps/Minutes X5 on steps X 5 on chair PT-OP-T Assessment and Plan Start: 10/25/23 19:44 Freq: Status: Active Protocol: Document 01/07/24 08:05 AB (Rec: 01/07/24 12:15 AB [id number]) Physical Therapy Assessment Goals Three Impairment Decreased L knee & gary ankle mobility (L EV, R IV) Short Term Goal (STG) Pt will be able to manage the edema in her L knee with use of cryotherapy and contrast heat/ice and RICE protocol for pain management. 12/10/23: GOAL MET: pt states uses CP on knee and elevates if needed for swelling mgt. STG Duration 6 wks-12/20/23 GOAL MET Edging Supervisor Goal (LTG) Improve L knee and gary ankle mobility with pt be able to walk after getting out of car after prolonged sitting (2 hrs ) w/o having to stand 10 secs before moving. 12/10/23: Progressing: pt reports hasn't driven long distances but when gets up from seated in chair for little bit, getting easier, not having to stand still for balance assess. 12/31/23: Supine L knee AROM: 7-115 deg's; Sitting L knee AROM: LTG Duration 12 wks-01/31/24 progressing 12/10/23 Two Impairment Decreased hip/knee/ankle strength limiting sit<>stand Short Term Goal (STG) Pt will be educated in supportive posturing in a car to reduce pain and edema with travel. 12/31/23: Briefly discussed use of LB support for long car rides to reduce possible onset of L knee pain. STG Duration 6 wks-12/20/23 progressed (need educat of sitting posture in car Edging Supervisor Goal (LTG) Improve gary hip/L knee & ankle strength with pt able to sit 2 hrs in a car, then be able to get up out of the car w/o use of her hands. 12/10/23: added clamshell, SAQ, stretching:fig4, HS,prone quad/c strap, standing knee flexion mobility on step. LTG Duration 12 wks-01/31/24 progressing 12/10/23 One Impairment Pt lacks and is not independent w/self care HEP. Group Home Goal (LTG) Pt will be independent in an effective self care HEP for core/hip/knee/ankle (L>R) strengthening and mobility ex' s (L knee/ankle/?hip). 12/04/23: prone hip ext, knee flexion, LAQ, STS, rolling pin LE. 12/06/23: TUG 8>7 sec very stable. 12/10/23: added clamshell, SAQ, fig 4&HS&quad stretch, AAROM knee flexion ROM use chair. 12/25/23: added glut med wall, LAQ increased resistance 5# leg wt. 12/31/23: I/S pt in light wgt above L knee for long duration, low intensity stretch f/b active QS. LTG Duration 12 wks-01/31/24 progressing 12/31/23 Assessment Summary Assessment lacking 9 deg ext to 118 deg flex AROM left knee end of session. Good wood to band added to clamshell and long arc quad and increased time to 60 sec from 30 for stretches. BP 140/81 HR 76 Physical Therapy Plan Frequency and Duration Frequency of Treatment 2x/Week Duration of treatment (weeks) 12 Plan of Care Start Date 11/07/23 Plan of Care End Date 01/31/24 Next Visit Focus/Plan Next Note Type Treatment Note Next Visit Plan Next tx:ankle mobility. Leg press *Pt leaving last week in Dec and month of January; therefore probable DC to HEP in 2 wks.* Monitor BP*/L knee AROM-pre/post tx. Start upright bike (vs recumbent) for L knee ext, standing knee flexion mobility /c 2nd step, glut med wall. Try: Shuttle for VMO strengthening to improve knee ext ROM; knee flexion w/gentle LB traction; Ankle EV left, IV right ROM ex & strengthening ankle/gary hip ext/knee CKC strengthening; Functional Mobility progression: santos stepping. Manual: STM mob of Tib/fib jt Pt Education (HEP, edema mgmt w/hot-cold). Gait/balance training POC: Therapeutic Ex (L knee/ ankle ROM) & hip/ankle strengthening, Therapeutic Activity (car sitting posture training, manual therapy (JMT L tib/fib), Stair amb, Balance training, Manual therapy, Pt Education.
--- NOTE | 2024-01-09 17:18 | PT-OP ANOTE ---
Pt blood pressure taken before treatment after resting on ex bike seat (per automatic blood pressure unit) was 174/94, HR 72. Pt then sat in regular webbed chair with another sit rest (3-5 minute) with blood pressure 185/91, HR 75. Pt was advised to contact her primary care or cardiac physician as she has recently been started on a new HBP medication. Therapy was held today due to concerns of her HBP to start. Pt to be seen for one more visit for discharge to [facility] as she plans to leave the area for an extended period of time and has requested discharge. Per phone pt reports her cardiac physician found her BP 150/101 and was told to go home and eat and rest. Pt will check her BP in the morning to see if appropriate for final PT visit.
--- NOTE | 2024-01-10 18:55 | PT.OTN ---
Addendum entered and electronically signed by Madeline Cabrera, PT 01/13/24 08:30: Late submittal and entry: LEFS score 64/80. Hip & Knee pain 05/08. Original Note: Current Diagnoses Pain in right knee (01/10/24) Pain in left knee (01/10/24) Muscle weakness (generalized) (01/10/24) Other abnormalities of gait and mobility (01/10/24) Physical Therapy Treatment Note PT-OP-A Visit Information Start: 10/25/23 19:44 Freq: Status: Active Protocol: Document 01/10/24 09:51 LRN (Rec: 01/10/24 10:38 LRN [id number]) Out-Patient Physical Therapy Visit Information Visit Information Visit Type Discharge Summary Visit Note 08/06 post PN Visit Start Time 09:51 Visit Stop Time 09:37 Visit Number 12 Evaluation Information Evaluation Date 11/07/23 Precautions Precautions Back pain, Osteopenia, HBP semi-controlled w/meds, thyroid disorder. 07/20: L knee xray: Small joint effusion. No suspicious soft tissue calcifications. Stable left knee medial compartment hemiarthroplasty. PT-OP-B Current Condition Start: 10/25/23 19:44 Freq: Status: Active Protocol: Document 11/07/23 18:59 LRN (Rec: 11/07/23 20:35 LRN [id number]) Current Condition History of Current Condition Onset Date 01/2022 Current Complaints Intermittent L knee super & infer to lat jt line pn & ant to tib/fib & jt History of Current Condition Pt is s/p L partial knee arthroplasty, 01/[address] Guerra in [facility]. Pt states she had 7 months of PT at [facility] Physical Therapy with good results until the last day of therapy, when she pushed a cart weighing 100#, and ended up twisting at the knee causing onset of knee pain. She reports having 7 ART treatments that she reports helped her get over the initial sharp pains. She reports her pain is now intermittent, noticeably when she twists at the knee resulting in a click deep in the knee and temporary instantaneous pain. She states she does her previous [facility] ex's sometimes, but mainly ex's at a gym 1x/week on an ex bike 45 minutes (3 miles). She reports difficulty standing after sitting in a car, requiring use of her hands to get up out of the car and must stand for ~10 secs before she is able to move and walk. Pt states she was referred to PT. Prior Treatments and Tests [facility] physical therapy for 7 months s/p L partial knee arthroplasty Treatment Goals Patient/Caregiver Goals Pt goal: - be able to sit 2 hrs in a car, then be able to get up out of the car w/o use of her hands - be able to walk after getting out of car after prolonged sitting (2 hrs) w/o having to stand 10 secs before moving. - pt agreeable to being placed on a HEP. Personal Factors Other Personal Factors That May Effect HBP not completely controlled Therapy/Recovery by meds (last taken-131/84), Osteopenia, Hypothyroid (controlled by meds). PT-OP-C Subjective Start: 10/25/23 19:44 Freq: Status: Active Protocol: Document 01/10/24 09:51 LRN (Rec: 01/10/24 10:38 LRN [id number]) OP-PT Subjective Patient Comments Patient Comments Pt reports she took her BP at home, was 151/91. Pt states she still has pain when first getting out of her car after prolonged sitting, but recovers quickly when up and walking. PT-OP-E Functional Tests Start: 10/25/23 19:44 Freq: Status: Active Protocol: Document 12/06/23 09:04 SP (Rec: 12/06/23 09:50 SP [id number]) Functional Tests Timed Up and Go (TUG) Score 8, 7, 7 Comments good stability and pivot turn TUG Impairment Rating 1 to <20% Impaired (Score 11) PT-OP-G Mobility & Gait Start: 10/25/23 19:44 Freq: Status: Active Protocol: Document 11/07/23 18:59 LRN (Rec: 11/07/23 20:35 LRN [id number]) OP Gait Assessment Gait Gait Assistance Required: Independent Gait Deviations General Gait Pattern Decreased Stride Length, Decreased Feet Clearance, Lateral Trunk Lean Factors Limiting Gait Function Factors Limiting Gait Function Limited Range of Motion,Pain PT-OP-J Posture/Palpation/Skin Start: 10/25/23 19:44 Freq: Status: Active Protocol: Document 11/07/23 18:59 LRN (Rec: 11/07/23 20:35 LRN [id number]) Posture Evaluation Position Standing Head/C-Spine Posture Forward Head L-Spine Posture Flattened Weight Distribution Weight Shifted Right,Decreased Wt.Bear on (L) Hip Posture (L) Externally Rotated Knee Posture (R) Genu Varus Ankle/Foot Posture (R) Pronated,(L) Supinated Palpation Assessment Location L knee Palpation Location Joint line and inferiorly Palpation Findings Edema,Tenderness Palpation Details Tender at Tib/Fib joint with PA/AP mob, and anterior to Tib /Fib joint, tibialis anterior, fib longus (PF), peroneus longus (EV). PT-OP-K Range of Motion Start: 10/25/23 19:44 Freq: Status: Active Protocol: Document 01/10/24 09:51 LRN (Rec: 01/10/24 10:38 LRN [id number]) Knee Goniometric Range of Motion Knee Right Flexion Active (degrees) 118 Extension Active (degrees) 10 Left Flexion Active (degrees) 115 Extension Active (degrees) 10 Comments Sitting 13-110 PT-OP-M Strength Start: 10/25/23 19:44 Freq: Status: Active Protocol: Document 01/10/24 09:51 LRN (Rec: 01/10/24 18:51 LRN [id number]) Knee Strength Knee Manual Muscle Testing Right Comments Strength is 5/5 Left Comments Strength is 5/5 Ankle/Foot Strength Ankle and Foot Manual Muscle Testing Right Comments Strength is 5/5 Left Comments Strength is 5/5 PT-OP-Q Treatments Start: 10/25/23 19:44 Freq: Status: Active Protocol: Document 01/10/24 09:51 LRN (Rec: 01/10/24 10:38 LRN [id number]) Therapeutic Exercises Supine Exercises Ankle AROM Supine Exercise Name Ankle AROM Side bilateral Reps/Minutes 2' Comments MMT taken L knee AROM Supine Exercise Name L knee AROM Comments ROM taken. R knee ROM also taken stretching Supine Exercise Name Hamstring stretch straightening the knee > ankle DF Side bilateral Reps/Minutes 8' Comments Extra time for correcting position and mvmt tolerance SAQ Supine Exercise Name DC'd on her HEP Prone Exercises Knee flex Prone Exercise Name 1. quad stretch with strap, 2. AROM knee flexion Side bilateral Equipment Used strap at foot, pillow under pelvis Reps/Minutes 1. 10 sec X 6, 2. 10x Hip Ext Prone Exercise Name Verbal review of her HEP Sidelying Exercises clamshell Sidelying Exercise Name Verbal review of her HEP Sitting Exercises LAQ Sitting Exercise Name HEP review Side left Resistance level one band Reps/Minutes X10 Comments ROM taken Standing Exercises sit to stand Standing Exercise Name Reviewed on her HEP Reps/Minutes x2 knee mobility Standing Exercise Name Verbal review of her HEP with I/S to not use towel roll at knee jt Side left Other Exercises Long sit HS stretch Other Exercise Name Stretch into knee ext, f/b QSx 10 Side left Reps/Minutes HS stretch, f/b 5 SH QS x 10 Comments Extra time taken for proper postioning of ex to manual asst w/stretch. Self-Care/Home Management Treatment Education Other Education Brief re-review of proper sitting posture in car. Activities Self-Care/Home Management Activities Issued & reviewed HEP: Knee ext passive stretch with light weight on thigh & active quad set. Issued proper sitting posture handout. PT-OP-T Assessment and Plan Start: 10/25/23 19:44 Freq: Status: Active Protocol: Document 01/10/24 09:51 LRN (Rec: 01/10/24 10:38 LRN [id number]) Physical Therapy Assessment Goals Three Impairment Decreased L knee & gary ankle mobility (L EV, R IV) Short Term Goal (STG) Pt will be able to manage the edema in her L knee with use of cryotherapy and contrast heat/ice and RICE protocol for pain management. 12/10/23: GOAL MET: pt states uses CP on knee and elevates if needed for swelling mgt. STG Duration 6 wks-12/20/23 (GOAL MET ) Senior Care Goal (LTG) Improve L knee and gary ankle mobility with pt be able to walk after getting out of car after prolonged sitting (2 hrs ) w/o having to stand 10 secs before moving. 12/10/23: Progressing: pt reports hasn't driven long distances but when gets up from seated in chair for little bit, getting easier, not having to stand still for balance assess. 12/31/23: Supine L knee AROM: 7-115 deg's; Sitting L knee AROM: 01/10/24: No change. Once up and going she feels she is good. LTG Duration 12 wks-01/31/24 (01/10/24: NOT MET GOAL) Two Impairment Decreased hip/knee/ankle strength limiting sit<>stand Short Term Goal (STG) Pt will be educated in supportive posturing in a car to reduce pain and edema with travel. 12/31/23: Briefly discussed use of LB support for long car rides to reduce possible onset of L knee pain. 01/10/24: Pt identified she is to sit in car upright and to move her knees in the car; therefore pt shows recall of eduation previously. Handout issued for proper sitting posture. STG Duration 6 wks-12/20/23 (01/10/24: MET GOAL) Accounting Machine Operator Goal (LTG) Improve gary hip/L knee & ankle strength with pt able to sit 2 hrs in a car, then be able to get up out of the car w/o use of her hands. 12/10/23: added clamshell, SAQ, stretching:fig4, HS,prone quad/c strap, standing knee flexion mobility on step. 01/10/24: HEP: Supine: Passive & activbe Quad stretch . Reviewed pt;s HEP and modified as needed. Knee & Ankle strength is 5/5 bilaterally. LTG Duration 12 wks-01/31/24 (01/10/24: MET GOAL for current status) One Impairment Pt lacks and is not independent w/self care HEP. Accounting Machine Operator Goal (LTG) Pt will be independent in an effective self care HEP for core/hip/knee/ankle (L>R) strengthening and mobility ex' s (L knee/ankle/?hip). 12/04/23: prone hip ext, knee flexion, LAQ, STS, rolling pin LE. 12/06/23: TUG 8>7 sec very stable. 12/10/23: added clamshell, SAQ, fig 4&HS&quad stretch, AAROM knee flexion ROM use chair. 12/25/23: added glut med wall, LAQ increased resistance 5# leg wt. 12/31/23: I/S pt in light wgt above L knee for long duration, low intensity stretch f/b active QS. LTG Duration 12 wks-01/31/24 (01/10/24: MET GOAL for current status) Assessment Summary Assessment Pt is a 72 yo female s/p L partial knee arthroplasty () who initially presented with L knee weakness, decreased mobility, R knee/hip pain, antalgic gait, edema & stiffness/pain and walking dysfunction at L knee after prolonged sitting. She has made good progress with now normal L knee strength and no complaints of R knee/hip pain. She has a dysfunctional gait after prolonged sitting due to stiffness of bilateral knees and hip flexors. The pt did show signs of low back involvement related to her R knee pain that she seems to be able to help control with improved LB sit posturing. In standing she shows increased lordosis due to very tight hip flexors. Further assessment of her LB would be appropriate if further onset of R knee pain occurs. The pt had a few episodes of high blood pressure and because she took her blood pressure at home, further assessment was not done in clinic. HEP review/ placement was focus of treatment today. The pt is planning on leaving the area for a month; therefore the pt requests discharge from PT to her HEP. I feel this is appropriate and that the pt may be able to improve her gary knee ROM further on her HEP. Physical Therapy Plan Discharge Physical Therapy Discharge Reasons Patient Request Discharge Comments Pt partially met her goals. She has stiffness after prolonged sitting and upon moving (getting out of car) she has initial pain/stiffness that goes away after a little of mobilizing. The pt has limited L>R knee mobility. Pt has a HEP to work towards improved symmetry of mobility and possibly improved ROM. Thank you for your referral.
== END 2024-01-14 14:42 | disposition home or self-care (01) ==
LOC: PHYS 09:45
PROVIDERS: Family Provider Nurse Practitioner Family; PCP Nurse Practitioner Family; Referring Provider Nurse Practitioner Family; Visit Provider Nurse Practitioner Family
DX: M25.561 Pain in right knee (principal); M25.562 Pain in left knee; M62.81 Muscle weakness (generalized); R26.89 Other abnormalities of gait and mobility
CPT/HCPCS: 97110; 97140; 97162; 97535

== ENCOUNTER → 2024-01-17 09:21 | Outpatient (CLI) | payer MEDICARE, SELFPAY ==
[2024-01-17 11:01] LABS: BUN Creatinine Ratio 27.1 (6-22); Blood Urea Nitrogen 23 mg/dL (7-17); Calcium 9.8 mg/dL (8.4-10.2); Carbon Dioxide 28 mmol/L (22-32); Chloride 103 mmol/L (98-107); Estimated Glomerular Filt Rate > 60 mL/min (>60); Glucose 116 mg/dL (80-110); HEMOLYSIS < 15 (0-50); Sodium 137 mmol/L (137-145)
== END ==
PROVIDERS: Family Provider Nurse Practitioner Family; PCP Nurse Practitioner Family; Referring Provider Nurse Practitioner; Visit Provider Nurse Practitioner
DX: I10 Essential (primary) hypertension (principal)
CPT/HCPCS: 36415; 80048